=== PATIENT | male | born 1980 | race Caucasian/White ===

== ENCOUNTER 2020-11-29 15:57 | Emergency (ER) | payer OTHER, SELFPAY ==
--- NOTE | ~2020-11-29 | US_ITS ---
EXAMINATION: US ABDOMEN LIMITED CLINICAL INFORMATION: Right upper quadrant pain. COMPARISON: 06/13/2013 TECHNIQUE: Real-time imaging of the right upper quadrant abdominal viscera. FINDINGS: PANCREAS: Head of the pancreas obscured by bowel gas. The visualized pancreas is normal. LIVER: Liver is normal in size and contour. There is diffuse increased liver parenchymal echogenicity, consistent with hepatic steatosis. No focal hepatic lesion. There is no intrahepatic biliary duct dilatation seen. GALLBLADDER: Normal. The gallbladder is physiologically distended without evidence of stones, sludge, polyps, wall thickening or pericholecystic fluid. COMMON BILE DUCT: Normal in caliber measuring 0.2 cm in diameter. RIGHT KIDNEY: Normal. No hydronephrosis. No renal calculi or focal parenchymal lesions. The kidney measures 10.5 cm in maximum dimension. FREE FLUID: None. US/US abdomen limited IMPRESSION: Normal gallbladder. No biliary ductal dilatation. Sonographic appearance consistent with diffuse hepatic steatosis.
--- NOTE | ~2020-11-29 | XR_ITS ---
EXAMINATION: XR CHEST CLINICAL INFORMATION: Right upper quadrant pain COMPARISON: 03/09/2019 TECHNIQUE: 2 views of the chest were obtained. FINDINGS: Low lung volumes. Left base atelectasis or scar again seen.. No focal consolidation or mass. Normal pulmonary vascularity. No pleural effusion or pneumothorax. Normal heart size. Regional skeleton intact. XR/XR chest 2V IMPRESSION: No acute pulmonary disease.
[2020-11-29 16:00] VITALS: BP 132/76; PULSE 85; RESP 18; TEMP 36.6; O2SAT 97; BMI 29.3
[2020-11-29 18:21] VITALS: BP 140/86; PULSE 94; RESP 16; TEMP 36.8; O2SAT 98
[2020-11-29 18:27] LABS: MANUAL DIFF FLAG NO
[2020-11-29 18:39] LABS: Basophils Absolute Auto 0.1 X10*3/uL (0.0-0.2); Basophils Percent Auto 0.7 % (0-2); Eosinophils Absolute Auto 0.1 X10*3/uL (0.0-0.4); Eosinophils Percent Auto 1.2 % (0-4); Hemoglobin 16.8 g/dl (14.0-18.0); Imm Gran Abs Auto 0.02 X10*3/uL (0.00-0.03); Imm Gran Pct Auto 0.2 % (0.0-0.4); Lymphocytes Absolute Auto 2.7 X10*3/uL (1.2-4.9); Lymphocytes Percent Auto 26.3 % (20-40); Mean Corpuscular HGB Conc 34.3 g/dl (31.0-36.0); Mean Corpuscular Hemoglobin 28.8 pg (27.0-33.0); Mean Platelet Volume 11.6 fL (9.4-12.4); Monocytes Absolute Auto 0.9 X10*3/uL (0.1-1.2); Neutrophils Absolute Auto 6.4 X10*3/uL (2.0-8.3); Neutrophils Percent Auto 62.6 % (45-73); Platelet Count 237 X10*3/uL (160-400); Red Blood Count 5.83 X10*6/uL (4.60-5.80); Red Cell Distribution Width 12.4 % (11.0-16.0); White Blood Count 10.2 X10*3/uL (4.8-10.8)
[2020-11-29 18:46] LABS: Alanine Aminotransferase 26 U/L (0-40); Albumin Level 4.7 g/dL (3.5-5.0); Alkaline Phosphatase 47 U/L (39-117); Anion Gap 15 (12-20); Aspartate Amino Transferase 20 U/L (5-37); Bilirubin Direct 0.3 mg/dL (0.0-0.5); Blood Urea Nitrogen 19 mg/dL (9-16); Calcium 9.6 mg/dL (8.4-10.2); Carbon Dioxide 26 mmol/L (22-29); Chloride 103 mmol/L (96-108); Estimated Glomerular Filt Rate > 60; Glucose Random 89 mg/dL (60-115); Lipase 58 U/L (8-78); Potassium 3.1 mmol/L (3.3-5.1); Sodium 141 mmol/L (135-145); Total Protein 7.7 g/dL (6.5-8.0)
--- NOTE | 2020-11-29 19:46 | PC.NURSE ---
patient ambulated back to the bed with a steady gait. Patient in the bathroom getting undressed at this time.
--- NOTE | 2020-11-29 20:46 | ED.ABDPAIN ---
HPI - Abdominal Pain General Chief Complaint: Abdominal Pain Stated Complaint: Abdominal pain Source: patient Mode of arrival: ambulatory Limitations: no limitations History of Present Illness HPI narrative: 40-year-old male with past medical history of gastritis presents with 1 day of right upper quadrant abdominal pain. Patient states the pain gets worse after eating pork chops verses soup. He does not report any fevers or chills, nausea or vomiting, chest pain or pressure, palpitations, shortness of breath, abdominal distention, dysuria, hematuria, melena, hematochezia, diarrhea, constipation, or edema. MD elicited complaint: abdominal pain Pertinent past history: gastritis Onset (ago): day(s) (1) Pain Consistency: constant Location: RUQ and R flank Severity: moderate Pain scale (0-10): 5 Quality: aching Radiation: R flank Exacerbating factors: eating Relieving factors: rest Associated symptoms: denies other symptoms Related Data Previous Rx's Medication Instructions Recorded ibuprofen 600 mg PO Q6H PRN #60 tab 11/29/20 Allergies Allergy/AdvReac Type Severity Reaction Status Date / Time No Known Allergies Allergy Verified 11/29/20 15:59 Review of Systems Review of Systems Constitutional: No Weight loss, No Fever, No Chills, No Night Sweats, No Fatigue, No Malaise ENT/Mouth: No Hearing loss, No Ear Pain, No Nasal Congestion, No Sinus Pain, No Hoarseness, No sore throat, No Rhinorrhea, No Swallowing Difficulty Eyes: No Eye Pain, No Swelling, No Redness, No Foreign Body, No Discharge, No Vision Changes Cardiovascular: No Chest Pain, No SOB, No Dyspnea on Exertion, No Orthopnea, No Edema, No Palpitations Respiratory: No Cough, No Sputum, No Wheezing, No Smoke Exposure, No Dyspnea Gastrointestinal: Positive right upper quadrant pain, no Nausea, no Vomiting, no Diarrhea, no abdominal Pain, No Hematochezia, No Melena Genitourinary: no irregular bleeding, No Dysuria, No Urinary Frequency, No Hematuria, No Urinary Incontinence, No Urgency, No Flank Pain, No Urinary Flow Changes, No Hesitancy Musculoskeletal: No joint pain, No Myalgias, No Joint Swelling Skin: No Skin Lesions, No rash Neuro: No Weakness, No Numbness, No Paresthesias, No Loss of Consciousness, No Dizziness, No Headache Psych: No Anxiety/Panic, No Depression, No SI/HI/AH/VH, No Social Issues Heme/Lymph: No Bruising, No Bleeding,No Lymphadenopathy Endocrine: No Polyuria, No Polydipsia, No Temperature Intolerance Yes all other systems are reviewed and are negative Physical Exam Vital Signs: Vital Signs: Last Vital Signs Temp 98.7 F 11/29/20 21:42 Pulse 83 11/29/20 21:42 Resp 16 11/29/20 21:42 BP 127/82 11/29/20 21:42 Pulse Ox 98 11/29/20 21:42 Body Mass Index 29.3 Appearance: Alert. Oriented X3. No acute distress. Eyes: Pupils equal, round and reactive to light. ENT: Pharynx normal. Neck: Normal inspection. Neck supple. CVS: Normal heart rate and rhythm. Pulses normal. Respiratory: No respiratory distress. Breath sounds normal. Abdomen: Soft and right upper quadrant tenderness, positive Newell's, positive CVA tenderness, no distention, rigidity, or rebound. Skin: Skin warm and dry. Normal skin color. Normal skin turgor. Extremities: No lower extremity edema. Moves all extremities against resistance. Neuro: No motor deficit. No sensory deficit. Cranial nerves 2-12 intact. No focal neural deficits. Course Course Course Narrative: 40-year-old male presents with 1 day of right upper quadrant abdominal pain radiating to his right flank. CBC and Chem 7 were drawn while patient was waiting in the waiting room, labs are unremarkable. Physical exam is positive for Newell's, will order abdominal ultrasound. Will give some Toradol and some saline. Urinalysis negative, chest x-ray negative, abdominal ultrasound shows a distended gallbladder and fatty liver disease. Discussion with patient regarding plan to follow-up primary care physician, persists over next couple of weeks that patient could be referred to surgery, and if the patient develops fevers, chills, nausea, vomiting or any symptoms concerning for infection that he should return to emergency department as this may progress to a cholecystitis. Patient and family verbalized understanding of and agrees to plan of care discharge home. land surveyor assistant utilized for all correspondence, Google translate utilized for discharge instructions. MDM - Abdominal Pain MDM Narrative Medical decision making narrative: Cholecystitis, gallstone Differential Diagnosis Differential diagnosis: Likely abdominal pain, acute appendicitis, calculus of kidney, constipation and pancreatitis Medical Records Attestation: I reviewed the patient's medical records. Lab Data Attestation: I reviewed the patient's lab results. Result diagrams: 11/29/20 18:20 11/29/20 18:20 Labs: Lab Results 11/29/20 11/29/20 Range/Units 18:20 18:20 WBC 10.2 (4.8-10.8) X10*3/uL RBC 5.83 H (4.60-5.80) X10*6/uL Hgb 16.8 (14.0-18.0) g/dl Hct 49.0 (42-52) % MCV 84.0 (80-98) fL MCH 28.8 (27.0-33.0) pg MCHC 34.3 (31.0-36.0) g/dl RDW 12.4 (11.0-16.0) % Plt Count 237 (160-400) X10*3/uL MPV 11.6 (9.4-12.4) fL Immature Gran % (Auto) 0.2 (0.0-0.4) % Neut % (Auto) 62.6 (45-73) % Lymph % (Auto) 26.3 (20-40) % Taylor % (Auto) 9.0 (2-11) % Eos % (Auto) 1.2 (0-4) % Baso % (Auto) 0.7 (0-2) % Lymph # (Auto) 2.7 (1.2-4.9) X10*3/uL Taylor # (Auto) 0.9 (0.1-1.2) X10*3/uL Eos # (Auto) 0.1 (0.0-0.4) X10*3/uL Baso # (Auto) 0.1 (0.0-0.2) X10*3/uL Abs Immat Gran (auto) 0.02 (0.00-0.03) X10*3/uL Absolute Neuts (auto) 6.4 (2.0-8.3) X10*3/uL Absolute Nucleated RBC 0.000 (0.0-0.012) X10*3/uL Nucleated RBC % (auto) 0.0 (0.0-0.2) /100WBC Sodium 141 (135-145) mmol/L Potassium 3.1 L (3.3-5.1) mmol/L Chloride 103 (96-108) mmol/L Carbon Dioxide 26 (22-29) mmol/L Anion Gap 15 (12-20) BUN 19 H (9-16) mg/dL Creatinine 1.01 (0.5-1.4) mg/dL Estim Creat Clear Calc 99.0 Estimated GFR > 60 Random Glucose 89 (60-115) mg/dL Calcium 9.6 (8.4-10.2) mg/dL Total Bilirubin 1.0 (0.0-1.0) mg/dL Direct Bilirubin 0.3 (0.0-0.5) mg/dL AST 20 (5-37) U/L ALT 26 (0-40) U/L Alkaline Phosphatase 47 (39-117) U/L Total Protein 7.7 (6.5-8.0) g/dL Albumin 4.7 (3.5-5.0) g/dL Lipase 58 (8-78) U/L Imaging Data Chest x-ray: Attestation: I personally reviewed and interpreted this imaging study as follows: Radiologist's impression: EXAMINATION: XR CHEST CLINICAL INFORMATION: Right upper quadrant pain COMPARISON: 03/09/2019 TECHNIQUE: 2 views of the chest were obtained. FINDINGS: Low lung volumes. Left base atelectasis or scar again seen.. No focal consolidation or mass. Normal pulmonary vascularity. No pleural effusion or pneumothorax. Normal heart size. Regional skeleton intact. XR/XR chest 2V IMPRESSION: No acute pulmonary disease. Abdominal ultrasound: Attestation: I personally reviewed and interpreted this imaging study as follows: Radiologist's impression: EXAMINATION: US ABDOMEN LIMITED CLINICAL INFORMATION: Right upper quadrant pain. COMPARISON: 06/13/2013 TECHNIQUE: Real-time imaging of the right upper quadrant abdominal viscera. FINDINGS: PANCREAS: Head of the pancreas obscured by bowel gas. The visualized pancreas is normal. LIVER: Liver is normal in size and contour. There is diffuse increased liver parenchymal echogenicity, consistent with hepatic steatosis. No focal hepatic lesion. There is no intrahepatic biliary duct dilatation seen. GALLBLADDER: Normal. The gallbladder is physiologically distended without evidence of stones, sludge, polyps, wall thickening or pericholecystic fluid. COMMON BILE DUCT: Normal in caliber measuring 0.2 cm in diameter. RIGHT KIDNEY: Normal. No hydronephrosis. No renal calculi or focal parenchymal lesions. The kidney measures 10.5 cm in maximum dimension. FREE FLUID: None. US/US abdomen limited IMPRESSION: Normal gallbladder. No biliary ductal dilatation. Sonographic appearance consistent with diffuse hepatic steatosis. Discharge Plan Discharge Clinical Impression: Abdominal pain, acute, right upper quadrant Patient Disposition: Home, Self-Care Instructions: Biliary Colic (ED), Non-Alcoholic Fatty Liver Disease (ED) Additional Instructions: Te evaluaron para el dolor del cuadrante superior derecho. La ecograf?a del abdomen muestra quyen ves?cula biliar distendida sin infecci?n, c?lculos biliares o lodos de agallas. Si el dolor persiste en las pr?ximas semanas, es posible que consideres hacer un seguimiento con el cirujano. Si presenta fiebres, escalofr?os, n?useas, v?mitos y dolor abdominal, regrese al servicio de urgencias inmediatamente, ya que esto puede indicar que la ves?cula biliar distendida progres? en quyen infecci?n de la ves?cula biliar. El ultrasonido tambi?n indica que tienes enfermedad del h?gado graso. Por favor, jaison un seguimiento con carballo m?dico de atenci?n primaria O gastroenterolog?a . La radiograf?a de t?rax es negativa para los hallazgos agudos que requieren quyen intervenci?n emergente. Los valores de carballo laboratorio son negativos para la infecci?n o el hallazgo carolee. Le recet? Motrin 600 mg cada 6 horas seg?n sea necesario para el dolor Marta por elegir nadir departamento de emergencias para carballo evaluaci?n. Por favor, jaison un seguimiento con el m?dico de atenci?n primaria seg?n sea necesario. Volver al servicio de urgencias para cualquier s?ntoma nuevo, preocupante o que empeore You were evaluated for right upper quadrant pain. Ultrasound of the abdomen shows a distended gallbladder without infection, gallstone, or gall sludge. If pain persists over the next few weeks you may consider following up with the surgeon. If you develop fevers, chills, nausea, vomiting, and abdominal pain please return to the emergency department immediately as this may indicate that your distended gallbladder progressed into a gallbladder infection. Ultrasound also indicates that you have fatty liver disease. Please follow-up with your primary care physician or Gastroenterology. Your chest x-ray is negative for acute findings requiring emergent intervention. Your lab values are negative for infection or acute finding. I prescribed Motrin 600 mg every 6 hours as needed for pain Thank you for choosing this emergency department for evaluation. Please follow-up with primary care physician as needed. Return to the emergency department for any new, concerning, or worsening symptoms. Prescriptions: New ibuprofen 600 mg tablet 600 mg PO Q6H PRN (Reason: pain) Qty: 60 RF: 0 Referrals: Alvaro Allred MD [Physician] - 2 days (Fatty liver disease) Jorge Moreno MD [Physician] - 2 days (Distended gallbladder) [facility] Past Medical History Attestation statement: The following information was validated with the patient. Source: old records reviewed Medical History Gastritis Social History Social History Alcohol intake: never Smoking Status: Never smoker Use of substances other than those prescribed or required for medical reasons: No Advance Directives: No Advance Directives Information Provided: Yes
[2020-11-29 21:42] VITALS: BP 127/82; PULSE 83; RESP 16; TEMP 37.1; O2SAT 98
[2020-11-29] MEDS: ondansetron HCL 4 MG/2 ML VIAL IVPUSH (21:46)
[2020-11-29] MEDS: Ketorolac Tromethamine 30 MG/ML VIAL IVPUSH (21:46)
[2020-11-29] MEDS: 0.9 % Sodium Chloride 1,000 ML 999 ML IVCONT (21:46)
[2020-11-29 22:59] LABS: Glucose Urine UA NEG (NEG); Leukocyte Esterase Urine NEG (NEG); Nitrite Urine NEG (NEG); Urine Blood NEG (NEG); Urine Ketones NEG (NEG); Urine Protein NEG (NEG-TRACE)
[2020-11-29 23:00] LABS: Appearance Urine CLEAR; Color Urine YELLOW
== END 2020-11-29 23:16 | disposition home or self-care (01) ==
PROVIDERS: Nurse Practitioner Family; Emergency Provider Internal Medicine
DX: R10.11 Right upper quadrant pain (principal); Z79.899 Other long term (current) drug therapy
CPT/HCPCS: 36415; 71046; 76705; 80048; 80076; 81003; 83690; 85025; 96365; 96375; 99285; J1885; J2405

== ENCOUNTER 2021-01-06 14:55 | Emergency (ER) | payer OTHER, SELFPAY ==
[2021-01-06 16:42] VITALS: BP 150/86; PULSE 122; RESP 18; TEMP 39.2; O2SAT 95; BMI 29.1
--- NOTE | 2021-01-06 17:06 | ED.GENADULT ---
HPI - General Adult General Chief complaint: General Medical Stated complaint: cough chest discomfort Time Seen by Provider: 01/06/21 16:44 Source: patient and family Limitations: language barrier History of Present Illness HPI narrative: Patient states 24-36 hours of fever cough congestion. Unknown COVID-19 exposure. Patient was scheduled to get the COVID-19 vaccine but has not. Patient denies smoking history. Patient denies any trauma history no other complaints at this time. Symptoms mild to moderate. Patient has a slight sore throat and no other complaints at this time. No prior history of COVID-19 Related Data Previous Rx's Medication Instructions Recorded ibuprofen 600 mg PO Q6H PRN #60 tab 11/29/20 Allergies Allergy/AdvReac Type Severity Reaction Status Date / Time No Known Allergies Allergy Verified 01/06/21 16:42 Review of Systems Constitutional: Constitutional: Denies chills, Reports fever(s) and Reports headache(s) ENT: Reports headache(s), Reports nasal congestion and Reports sore throat Cardiovascular: Cardiovascular: Denies chest pain and Reports dyspnea Respiratory: Respiratory: Reports cough and Reports dyspnea Gastrointestinal: Gastrointestinal: Denies nausea and Denies vomiting Genitourinary: Genitourinary: Reports no additional male genitourinary complaints Musculoskeletal: Musculoskeletal: Reports no additional musculoskeletal complaints Neurologic: Reports headache(s) Hematologic/Lymphatic: Hematologic/Lymphatic: Denies easy bleeding and Denies easy bruising Allergic/Immunologic: Allergic/Immunologic: Denies urticaria PMFSH Past Medical History Attestation statement: The following information was validated with the patient. Medical History Gastritis HTN (hypertension) Social History Social History Alcohol intake: never Advance Directives: No Advance Directives Information Provided: No Physical Exam Vital Signs: Vital Signs: Last Vital Signs Temp 102.6 F H 01/06/21 16:42 Pulse 122 H 01/06/21 16:42 Resp 18 01/06/21 16:42 BP 150/86 H 01/06/21 16:42 Pulse Ox 95 01/06/21 16:42 Body Mass Index 29.1 vital signs have been reviewed as normal and appeared to be correct. Blood pressure normal. Heart rate normal. Respiration rate normal. Temperature normal. Oxygen saturation normal. Appearance: Alert. Oriented X3. No acute distress. Head: Normal external exam. Normocephalic. Atraumatic. No Hanson signs noted. No raccoon eyes noted Eyes: PERRLA. EOMI. Conjunctiva and sclera normal. Eyelids normal. ENT: Pharynx normal. Uvula midline. Moist mucous membranes. Neck: Soft full range of motion, no JVD CVS: Heart regular rate and rhythm no murmurs and rubs Respiratory: Breath sounds are clear to auscultation bilaterally. No accessory muscle use noted. Abdomen: Soft nontender no rebound or guarding positive bowel sounds Skin: Skin warm and dry. Normal skin color. No rashes. Extremities: No lower extremity edema. Extremities exhibit normal range of motion. Extremities nontender. Neuro: Oriented X 3. No motor deficit. No sensory deficit. Reflexes normal. Course Course Course Narrative: Differential diagnosis: Fever COVID-19 URI Acute pharyngitis Patient is febrile 375 mg whole p.o. at this time. Patient's room air sats 95% with activity. COVID-19 swab test pending 5:49 p.m. patient signed out to Mayela Escalante PA-C Discharge Plan Discharge Prescriptions: No Action ibuprofen 600 mg tablet 600 mg PO Q6H PRN (Reason: pain) Qty: 60 RF: 0
[2021-01-06] MEDS: Acetaminophen 325 MG TABLET PO ×3 (17:30)
[2021-01-06 18:00] LABS: COVID-19 Test Positive (Negative)
[2021-01-06 18:37] VITALS: BP 131/86; PULSE 115; RESP 17; TEMP 39; O2SAT 97
[2021-01-06] MEDS: Ibuprofen 400 MG TABLET PO (19:18)
[2021-01-06 20:03] VITALS: PULSE 108; RESP 17; TEMP 38.1; O2SAT 97
== END 2021-01-06 21:30 | disposition home or self-care (01) ==
PROVIDERS: Physician Assistant; Emergency Provider Internal Medicine
DX: U07.1 COVID-19 (principal); J02.9 Acute pharyngitis, unspecified; R50.9 Fever, unspecified; R05 Cough; Z79.899 Other long term (current) drug therapy
CPT/HCPCS: 36415; 87635; 99284

== ENCOUNTER 2021-01-12 15:17 | Emergency (ER) | payer OTHER, SELFPAY ==
--- NOTE | ~2021-01-12 | XR_ITS ---
EXAMINATION: XR CHEST CLINICAL INFORMATION: Chest tightness COMPARISON: 11/29/2020 TECHNIQUE: Frontal view of the chest was obtained. FINDINGS: Lungs are hypoinflated. Heart size normal. Atelectasis present at the left base slightly worsened previously noted. No areas of linear atelectasis at the right lung base and mid lung XR/XR chest 1V IMPRESSION: Hypoinflated lungs with scattered areas of atelectasis.
[2021-01-12 17:01] VITALS: BP 114/84; PULSE 117; RESP 18; TEMP 38.4; O2SAT 93
[2021-01-12 17:16] VITALS: TEMP 39.1
[2021-01-12 17:25] VITALS: PULSE 100; RESP 18; TEMP 39.1; O2SAT 95; BMI 29.1
--- NOTE | 2021-01-12 17:27 | ECG_ITS ---
Test Reason : SHORTNESS OF BREATH Blood Pressure : / mmHG Vent. Rate : 103 BPM Atrial Rate : 103 BPM P-R Int : 162 ms QRS Dur : 088 ms QT Int : 338 ms P-R-T Axes : 031 000 006 degrees QTc Int : 442 ms Sinus tachycardia Otherwise normal ECG When compared to the previous EKG of No significant changes seen Referred By: Mirela Noguera Electronically Signed By:JESSICA ALFARO MD
--- NOTE | 2021-01-12 17:32 | ED.GENADULT ---
HPI - General Adult General Chief complaint: Upper Respiratory Symptoms Stated complaint: covid + Time Seen by Provider: 01/12/21 17:21 Source: patient Mode of arrival: ambulatory Limitations: no limitations History of Present Illness HPI narrative: Patient comes to emergency room complaining of testing positive for COVID 6 days ago, patient states that he has been having fever, chills, nausea, generalized malaise, shortness of breath. Patient has not taking any medications at home. Related Data Previous Rx's Medication Instructions Recorded ibuprofen 600 mg PO Q6H PRN #60 tab 11/29/20 acetaminophen 500 mg PO Q6H PRN #14 cap 01/12/21 Allergies Allergy/AdvReac Type Severity Reaction Status Date / Time No Known Allergies Allergy Verified 01/06/21 16:42 Review of Systems Review of Systems: Constitutional : No Weight loss, complaining of fever, chills, fatigue and generalized malaise ENT/Mouth : No Hearing loss, No Ear Pain, No Nasal Congestion, No Sinus Pain, No Hoarseness, No sore throat, No Rhinorrhea, No Swallowing Difficulty Eyes: No Eye Pain, No Swelling, No Redness, No Foreign Body, No Discharge, No Vision Changes Cardiovascular : No Chest Pain, No SOB, No Dyspnea on Exertion, No Orthopnea, No Edema, No Palpitations Respiratory : Complaining of dry cough, No Sputum, No Wheezing, No Smoke Exposure, complaining of dyspnea Gastrointestinal : Complaining of nausea, No Vomiting, No Diarrhea, No Constipation, No abdominal Pain, No Hematochezia, No Melena Genitourinary : no irregular bleeding, No Dysuria, No Urinary Frequency, No Hematuria, No Urinary Incontinence, No Urgency, No Flank Pain, No Urinary Flow Changes, No Hesitancy Musculoskeletal : No joint pain, complaining of diffuse Myalgias, No Joint Swelling Skin : No Skin Lesions, No rash Neuro : No Weakness, No Numbness, No Paresthesias, No Loss of Consciousness, No Dizziness, No Headache Psych : No Anxiety/Panic, No Depression, No SI/HI/AH/VH, No Social Issues, Heme/Lymph: No Bruising, No Bleeding,No Lymphadenopathy Endocrine : No Polyuria, No Polydipsia, No Temperature Intolerance PMFSH Past Medical History Medical History Gastritis HTN (hypertension) Social History Social History Alcohol intake: never Advance Directives: No Advance Directives Information Provided: Yes Physical Exam Vital Signs: Vital Signs: Last Vital Signs Temp 102.4 F H 01/12/21 17:25 Pulse 100 01/12/21 17:25 Resp 18 01/12/21 17:25 BP 114/84 01/12/21 17:01 Pulse Ox 95 01/12/21 17:25 Body Mass Index 29.1 Appearance: Alert. Oriented X3. No acute distress. Eyes: Pupils equal, round and reactive to light. ENT: Pharynx normal. Neck: Normal inspection. Neck supple. No lymph nodes noted. No crepitus CVS: Tachycardic, Pulses normal. Normal S1 and S2 Respiratory: No respiratory distress. Breath sounds decreased bilaterally. No Wheezing. No rales Abdomen: Soft and nontender. No rigidity. No distention. good BS x4 Skin: Skin warm and dry. Normal skin color. Normal skin turgor. Extremities: No lower extremity edema. No lower extremity edema. No Lacerations. No Rash Neuro: Oriented X 3. No motor deficit. No sensory deficit. Moving all extermities. No slurred speech. Course Course Course Narrative: I discussed the labs and imaging with the patient, which are consistent with COVID-19. [facility], his oxygen saturation remained at 91-94% while walking. Patient did not drop. Initially, there was an ambulation trial which went down to 88, however the patient did not have good waveform and the probe was falling of his finger. Patient states his also has COVID-19, at home. Discussed with the patient if he has any new symptoms, to return to the emergency room. Medical Decision Making Lab Data Result diagrams: 01/12/21 17:59 01/12/21 17:59 Labs: Lab Results 01/12/21 01/12/21 01/12/21 Range/Units 17:59 17:59 17:59 WBC 4.0 L (4.8-10.8) X10*3/uL RBC 5.81 H (4.60-5.80) X10*6/uL Hgb 16.5 (14.0-18.0) g/dl Hct 48.4 (42-52) % MCV 83.3 (80-98) fL MCH 28.4 (27.0-33.0) pg MCHC 34.1 (31.0-36.0) g/dl RDW 12.6 (11.0-16.0) % Plt Count 151 L D (160-400) X10*3/uL MPV 11.2 (9.4-12.4) fL Immature Gran % (Auto) 0.0 (0.0-0.4) % Neut % (Auto) 68.4 (45-73) % Lymph % (Auto) 21.3 (20-40) % Smyth % (Auto) 10.1 (2-11) % Eos % (Auto) 0.0 (0-4) % Baso % (Auto) 0.2 (0-2) % Lymph # (Auto) 0.9 L (1.2-4.9) X10*3/uL Smyth # (Auto) 0.4 (0.1-1.2) X10*3/uL Eos # (Auto) 0.0 (0.0-0.4) X10*3/uL Baso # (Auto) 0.0 (0.0-0.2) X10*3/uL Abs Immat Gran (auto) 0.00 (0.00-0.03) X10*3/uL Absolute Neuts (auto) 2.8 (2.0-8.3) X10*3/uL Absolute Nucleated RBC 0.000 (0.0-0.012) X10*3/uL Nucleated RBC % (auto) 0.0 (0.0-0.2) /100WBC D-Dimer < 200 NG/ML Sodium 138 (135-145) mmol/L Potassium 3.2 L (3.3-5.1) mmol/L Chloride 96 (96-108) mmol/L Carbon Dioxide 32 H (22-29) mmol/L Anion Gap 13 (12-20) BUN 13 (9-16) mg/dL Creatinine 1.27 (0.5-1.4) mg/dL Estim Creat Clear Calc 81.0 Estimated GFR > 60 Random Glucose 95 (60-115) mg/dL Lactic Acid (0.5-2.0) mmol/L Calcium 9.0 D (8.4-10.2) mg/dL Total Bilirubin 0.8 (0.0-1.0) mg/dL Direct Bilirubin 0.4 (0.0-0.5) mg/dL AST 134 H (5-37) U/L ALT 65 H (0-40) U/L Alkaline Phosphatase 34 L D (39-117) U/L Total Protein 7.4 (6.5-8.0) g/dL Albumin 4.4 (3.5-5.0) g/dL 01/12/21 Range/Units 17:59 WBC (4.8-10.8) X10*3/uL RBC (4.60-5.80) X10*6/uL Hgb (14.0-18.0) g/dl Hct (42-52) % MCV (80-98) fL MCH (27.0-33.0) pg MCHC (31.0-36.0) g/dl RDW (11.0-16.0) % Plt Count (160-400) X10*3/uL MPV (9.4-12.4) fL Immature Gran % (Auto) (0.0-0.4) % Neut % (Auto) (45-73) % Lymph % (Auto) (20-40) % Smyth % (Auto) (2-11) % Eos % (Auto) (0-4) % Baso % (Auto) (0-2) % Lymph # (Auto) (1.2-4.9) X10*3/uL Smyth # (Auto) (0.1-1.2) X10*3/uL Eos # (Auto) (0.0-0.4) X10*3/uL Baso # (Auto) (0.0-0.2) X10*3/uL Abs Immat Gran (auto) (0.00-0.03) X10*3/uL Absolute Neuts (auto) (2.0-8.3) X10*3/uL Absolute Nucleated RBC (0.0-0.012) X10*3/uL Nucleated RBC % (auto) (0.0-0.2) /100WBC D-Dimer NG/ML Sodium (135-145) mmol/L Potassium (3.3-5.1) mmol/L Chloride (96-108) mmol/L Carbon Dioxide (22-29) mmol/L Anion Gap (12-20) BUN (9-16) mg/dL Creatinine (0.5-1.4) mg/dL Estim Creat Clear Calc Estimated GFR Random Glucose (60-115) mg/dL Lactic Acid 1.2 (0.5-2.0) mmol/L Calcium (8.4-10.2) mg/dL Total Bilirubin (0.0-1.0) mg/dL Direct Bilirubin (0.0-0.5) mg/dL AST (5-37) U/L ALT (0-40) U/L Alkaline Phosphatase (39-117) U/L Total Protein (6.5-8.0) g/dL Albumin (3.5-5.0) g/dL Imaging Data Chest x-ray: Radiologist's impression: FINDINGS: Lungs are hypoinflated. Heart size normal. Atelectasis present at the left base slightly worsened previously noted. No areas of linear atelectasis at the right lung base and mid lung XR/XR chest 1V IMPRESSION: Hypoinflated lungs with scattered areas of atelectasis. Discharge Plan Discharge Clinical Impression: COVID-19 Fever Qualifiers: Fever type: unspecified Qualified Code(s): R50.9 - Fever, unspecified Patient Disposition: Home, Self-Care Instructions: COVID-19 (Coronavirus Disease 2019) (ED) Additional Instructions: Please follow-up with your primary care physician tomorrow. If you have any worsening or new symptoms, please return to the emergency room or call 911 Prescriptions: New acetaminophen 500 mg capsule 500 mg PO Q6H PRN (Reason: fever or pain) Qty: 14 RF: 0 No Action ibuprofen 600 mg tablet 600 mg PO Q6H PRN (Reason: pain) Qty: 60 RF: 0
[2021-01-12] MEDS: Acetaminophen 325 MG TABLET 650 MG PO (17:35)
[2021-01-12 18:07] LABS: MANUAL DIFF FLAG NO
[2021-01-12 18:09] LABS: Basophils Percent Auto 0.2 % (0-2); Hematocrit 48.4 % (42-52); Hemoglobin 16.5 g/dl (14.0-18.0); Lymphocytes Absolute Auto 0.9 X10*3/uL (1.2-4.9); Lymphocytes Percent Auto 21.3 % (20-40); Mean Corpuscular HGB Conc 34.1 g/dl (31.0-36.0); Mean Corpuscular Hemoglobin 28.4 pg (27.0-33.0); Mean Corpuscular Volume 83.3 fL (80-98); Mean Platelet Volume 11.2 fL (9.4-12.4); Monocytes Absolute Auto 0.4 X10*3/uL (0.1-1.2); Monocytes Percent Auto 10.1 % (2-11); Neutrophils Absolute Auto 2.8 X10*3/uL (2.0-8.3); Neutrophils Percent Auto 68.4 % (45-73); Platelet Count 151 X10*3/uL (160-400); Red Blood Count 5.81 X10*6/uL (4.60-5.80); Red Cell Distribution Width 12.6 % (11.0-16.0)
[2021-01-12] MEDS: ondansetron HCL 4 MG/2 ML VIAL IVPUSH (18:12)
[2021-01-12] MEDS: 0.9 % Sodium Chloride 1,000 ML 999 ML IVCONT (18:12)
[2021-01-12 18:18] LABS: D Dimer < 200 NG/ML
[2021-01-12 18:33] LABS: Lactic Acid 1.2 mmol/L (0.5-2.0)
[2021-01-12 18:38] LABS: Alanine Aminotransferase 65 U/L (0-40); Albumin Level 4.4 g/dL (3.5-5.0); Alkaline Phosphatase 34 U/L (39-117); Anion Gap 13 (12-20); Aspartate Amino Transferase 134 U/L (5-37); Bilirubin Direct 0.4 mg/dL (0.0-0.5); Bilirubin Total 0.8 mg/dL (0.0-1.0); Blood Urea Nitrogen 13 mg/dL (9-16); Carbon Dioxide 32 mmol/L (22-29); Chloride 96 mmol/L (96-108); Estimated Glomerular Filt Rate > 60; Glucose Random 95 mg/dL (60-115); Potassium 3.2 mmol/L (3.3-5.1); Sodium 138 mmol/L (135-145); Total Protein 7.4 g/dL (6.5-8.0)
[2021-01-12] MEDS: Potassium Chloride Packet 20 MEQ PACKET 40 MEQ PO (19:40)
[2021-01-12] MEDS: Prochlorperazine Edisylate 10 MG/2 ML VIAL IVPUSH (19:41)
[2021-01-12 20:00] VITALS: BP 119/76; PULSE 102; RESP 15; O2SAT 92
== END 2021-01-12 21:26 | disposition home or self-care (01) ==
PROVIDERS: Emergency Provider Emergency Medicine
DX: U07.1 COVID-19 (principal); R50.9 Fever, unspecified; I10 Essential (primary) hypertension
CPT/HCPCS: 36415; 71045; 80048; 80076; 83605; 85025; 85379; 93005; 96361; 96374; 96375; 99284; J2405

== ENCOUNTER 2021-11-04 20:49 | Emergency (ER) | payer OTHER, SELFPAY ==
--- NOTE | 2021-11-04 | ECG_ITS ---
Test Reason : CHEST PAIN Blood Pressure : / mmHG Vent. Rate : 072 BPM Atrial Rate : 072 BPM P-R Int : 184 ms QRS Dur : 092 ms QT Int : 378 ms P-R-T Axes : 040 009 022 degrees QTc Int : 413 ms Normal sinus rhythm Normal ECG When compared with ECG of 12-JAN-2021 18:01, No significant change was found Referred By: Generic ED Physician Electronically Signed By:GABRIEL CARLOS
--- NOTE | ~2021-11-04 | XR_ITS ---
EXAMINATION: XR CHEST CLINICAL INFORMATION: Chest pain COMPARISON: 01/12/2021 TECHNIQUE: 2 views of the chest were obtained. FINDINGS: Lung volumes are improved. Linear atelectasis vs. scar at the left lung base. No focal consolidation or mass. No pleural effusion or pneumothorax. Normal heart size. Regional skeleton intact. XR/XR chest 2V IMPRESSION: No acute pulmonary disease.
[2021-11-04 21:26] VITALS: BP 142/90; PULSE 78; RESP 14; TEMP 37.1; O2SAT 96; BMI 28.1
[2021-11-04 21:52] LABS: MANUAL DIFF FLAG NO
[2021-11-04 21:54] LABS: Basophils Absolute Auto 0.1 X10*3/uL (0.0-0.2); Basophils Percent Auto 1.1 % (0-2); Eosinophils Absolute Auto 0.2 X10*3/uL (0.0-0.4); Eosinophils Percent Auto 2.7 % (0-4); Hematocrit 45.8 % (42.0-52.0); Hemoglobin 15.5 g/dl (14.0-18.0); Imm Gran Abs Auto 0.01 X10*3/uL (0.00-0.03); Imm Gran Pct Auto 0.2 % (0.0-0.4); Lymphocytes Absolute Auto 1.9 X10*3/uL (1.2-4.9); Mean Corpuscular HGB Conc 33.8 g/dl (31.0-36.0); Mean Corpuscular Hemoglobin 28.7 pg (27.0-33.0); Mean Corpuscular Volume 84.7 fL (80.0-98.0); Mean Platelet Volume 11.2 fL (9.4-12.4); Monocytes Absolute Auto 0.5 X10*3/uL (0.1-1.2); Monocytes Percent Auto 8.3 % (2-11); Neutrophils Absolute Auto 3.6 x10*3/uL (2.0-8.3); Neutrophils Percent Auto 56.7 % (45-73); Platelet Count 215 X10*3/uL (160-400); Red Blood Count 5.41 X10*6/uL (4.60-5.80); Red Cell Distribution Width 12.6 % (11.0-16.0); White Blood Count 6.3 X10*3/uL (4.8-10.8)
[2021-11-04 22:08] LABS: Alanine Aminotransferase 32 U/L (0-40); Albumin Level 4.5 g/dL (3.5-5.0); Alkaline Phosphatase 58 U/L (39-117); Anion Gap 11 (12-20); Aspartate Amino Transferase 24 U/L (5-37); Bilirubin Direct 0.2 mg/dL (0.0-0.5); Bilirubin Total 0.4 mg/dL (0.0-1.0); Blood Urea Nitrogen 12 mg/dL (9-16); Calcium 9.3 mg/dL (8.4-10.2); Carbon Dioxide 26 mmol/L (22-29); Chloride 107 mmol/L (96-108); Creatinine Clr Calc Pharmacy 89.6; Estimated Glomerular Filt Rate > 60; Glucose Random 101 mg/dL (60-115); Lipase 75 U/L (8-78); Potassium 4.1 mmol/L (3.3-5.1); Sodium 140 mmol/L (135-145); Total Protein 7.4 g/dL (6.5-8.0)
[2021-11-04 22:15] LABS: Troponin-I High Sensitivity 3.5 ng/L (<3.5-35.0)
[2021-11-05 01:58] VITALS: BP 131/91; PULSE 69; RESP 16; O2SAT 98
--- NOTE | 2021-11-05 02:21 | ED.CHESTPAIN ---
HPI - Chest Pain General Chief Complaint: Chest Pain Stated Complaint: Chest pain Time Seen by Provider: 11/05/21 00:37 Source: patient and family Mode of arrival: ambulatory History of Present Illness HPI narrative: 41-year-old male without significant past medical history presents with having started a new exercise program over the past week and then states he worked out much harder over the past 3 days and began developing chest wall discomfort that was primarily located at the lower right chest wall but denies any associated headache/dizziness/nausea/diaphoresis but states that overall there was an increasing tightness across both sides. On deep inspiration patient states that he feels much more but denies any association with movement. Related Data Previous Rx's Medication Instructions Recorded ibuprofen 600 mg tablet 600 mg PO Q6H PRN #60 tab 11/29/20 acetaminophen 500 mg capsule 500 mg PO Q6H PRN #14 cap 01/12/21 Allergies Allergy/AdvReac Type Severity Reaction Status Date / Time No Known Allergies Allergy Verified 01/06/21 16:42 Review of Systems Review of Systems: Pertinent positives and negatives as stated in HPI 10 point review of systems is otherwise negative. PMFSH Past Medical History Source: nursing notes reviewed Medical History Gastritis HTN (hypertension) Social History Social History Alcohol intake: never Advance Directives: No Physical Exam Vital Signs: Vital Signs: Last Vital Signs Temp 98.8 F 11/04/21 21:26 Pulse 69 11/05/21 01:58 Resp 16 11/05/21 01:58 BP 131/91 H 11/05/21 01:58 Pulse Ox 98 11/05/21 01:58 BMI result Body Mass Index 28.1 VITAL SIGNS: Reviewed. GENERAL: Well developed, well nourished, in no acute distress. HEAD: Normocephalic/atraumatic EYES: PERRLA, EOMI EARS: Ext canals without abnormality OROPHARYNX: no oral lesions noted, posterior pharynx clear LUNGS: Normal breath sounds. No adventitious sounds or accessory muscle use. SpO2<98> CARDIOVASCULAR: Regular rate and rhythm without noted murmurs ABDOMEN: Soft, non-tender, non-distended with bowel sounds. MUSCULOSKELETAL: No tenderness, deformities, or effusions noted on gross inspection. EXTREMITIES: No cyanosis, clubbing or edema. SKIN: Inspection of the skin reveals no rashes NEUROLOGIC: Alert and oriented x 4. Strength and sensation to light touch were grossly intact x 4. Course Course Course Narrative: 41-year-old male with history and clinical presentation consistent with musculoskeletal/costochondritis but the possibility developing gallbladder symptoms may be present. On review of all investigations there are no acute findings to suggest cardiopulmonary etiology and patient is PERC negative. All results discussed with the patient at bedside and he is otherwise discharged home in stable condition. MDM - Chest Pain Lab Data Result diagrams: 11/04/21 21:48 11/04/21 21:48 Labs: Lab Results 11/04/21 11/04/21 11/04/21 Range/Units 21:48 21:48 21:48 WBC 6.3 (4.8-10.8) X10*3/uL RBC 5.41 (4.60-5.80) X10*6/uL Hgb 15.5 (14.0-18.0) g/dl Hct 45.8 (42.0-52.0) % MCV 84.7 (80.0-98.0) fL MCH 28.7 (27.0-33.0) pg MCHC 33.8 (31.0-36.0) g/dl RDW 12.6 (11.0-16.0) % Plt Count 215 (160-400) X10*3/uL MPV 11.2 (9.4-12.4) fL Immature Gran % (Auto) 0.2 (0.0-0.4) % Neut % (Auto) 56.7 (45-73) % Lymph % (Auto) 31.0 (20-40) % Bath % (Auto) 8.3 (2-11) % Eos % (Auto) 2.7 (0-4) % Baso % (Auto) 1.1 (0-2) % Lymph # (Auto) 1.9 (1.2-4.9) X10*3/uL Bath # (Auto) 0.5 (0.1-1.2) X10*3/uL Eos # (Auto) 0.2 (0.0-0.4) X10*3/uL Baso # (Auto) 0.1 (0.0-0.2) X10*3/uL Abs Immat Gran (auto) 0.01 (0.00-0.03) X10*3/uL Absolute Neuts (auto) 3.6 (2.0-8.3) x10*3/uL Absolute Nucleated RBC 0.000 (0.0-0.012) X10*3/uL Nucleated RBC % (auto) 0.0 (0.0-0.2) /100WBC Sodium 140 (135-145) mmol/L Potassium 4.1 D (3.3-5.1) mmol/L Chloride 107 (96-108) mmol/L Carbon Dioxide 26 (22-29) mmol/L Anion Gap 11 L (12-20) BUN 12 (9-16) mg/dL Creatinine 1.12 (0.5-1.4) mg/dL Estim Creat Clear Calc 89.6 Estimated GFR > 60 Random Glucose 101 (60-115) mg/dL Calcium 9.3 (8.4-10.2) mg/dL Total Bilirubin 0.4 (0.0-1.0) mg/dL Direct Bilirubin 0.2 (0.0-0.5) mg/dL AST 24 D (5-37) U/L ALT 32 (0-40) U/L Alkaline Phosphatase 58 D (39-117) U/L Troponin I High Sens 3.5 (<3.5-35.0) ng/L Total Protein 7.4 (6.5-8.0) g/dL Albumin 4.5 (3.5-5.0) g/dL Lipase 75 (8-78) U/L ECG Data ECG #1: Attestation: I personally reviewed and interpreted this ECG as follows: Prior ECG tracings: available for review Interpretation: NSR, HR-72, no STEMI, AK/QRS/QTC are within normal limits. Discharge Plan Discharge Clinical Impression: Atypical chest pain, Costalchondritis Patient Disposition: Home, Self-Care Instructions: Costochondritis (ED), Chest Wall Pain (ED) Additional Instructions: 1. Tylenol 1000 mg, por v?a oral, cada 6 horas seg?n sea necesario para controlar el dolor. No exceda los 4000 mg dentro de las 24 horas. 2. Ibuprofeno 400 mg, v?a oral con leche o comida, cada 6 horas jael para el control del dolor. 3. Si el dolor en la parte inferior derecha del pecho contin?a, le recomendar?a que jaison un seguimiento con carballo proveedor de atenci?n primaria para analizar la posibilidad de obtener quyen evaluaci?n por ultrasonido de carballo ves?cula biliar. Regrese a la asia de emergencias si los s?ntomas empeoran. Prescriptions: No Action ibuprofen 600 mg tablet 600 mg PO Q6H PRN (Reason: pain) Qty: 60 0RF acetaminophen 500 mg capsule 500 mg PO Q6H PRN (Reason: fever or pain) Qty: 14 0RF Print Language: Luxembourgish
== END 2021-11-05 02:58 | disposition home or self-care (01) ==
PROVIDERS: Emergency Provider Student in an Organized Health Care Education/Training Program
DX: R07.89 Other chest pain (principal); M94.0 Chondrocostal junction syndrome [Tietze]; I10 Essential (primary) hypertension
CPT/HCPCS: 36415; 71046; 80053; 82248; 83690; 84484; 85025; 93005; 99283; 99284

== ENCOUNTER 2023-02-17 16:09 | Emergency (ER) | payer OTHER, SELFPAY ==
--- NOTE | ~2023-02-17 | XR_ITS ---
EXAMINATION: RIGHT ANKLE, RIGHT FOOT CLINICAL INFORMATION: 3 with pain COMPARISON: None available. TECHNIQUE: 2 views right ankle, 3 views right foot FINDINGS: The ankle mortise is stable. No ankle fracture is seen. No joint effusion is detected. Evaluation of the foot is unremarkable without evidence of fracture or dislocation. XR/XR ankle RT min 3V IMPRESSION: No evidence of an acute osseous injury.
--- NOTE | ~2023-02-17 | XR_ITS ---
EXAMINATION: RIGHT ANKLE, RIGHT FOOT CLINICAL INFORMATION: 3 with pain COMPARISON: None available. TECHNIQUE: 2 views right ankle, 3 views right foot FINDINGS: The ankle mortise is stable. No ankle fracture is seen. No joint effusion is detected. Evaluation of the foot is unremarkable without evidence of fracture or dislocation. XR/XR foot RT min 3V IMPRESSION: No evidence of an acute osseous injury.
[2023-02-17 16:22] VITALS: BP 145/93; PULSE 99; RESP 18; TEMP 36.6; O2SAT 96; BMI 33.1
--- NOTE | 2023-02-17 16:23 | ED.LOWEXIN ---
HPI - Extremity Injury (Lower) General Chief Complaint: Extremity Injury, Lower Stated Complaint: swollen ankle Time Seen by Provider: 02/17/23 17:20 Source: patient Mode of arrival: ambulatory Limitations: language barrier ( Gabonese-speaking medical laboratory specialist utilized) History of Present Illness HPI Narrative: patient is a 42-year-old male who presents emergency department for evaluation of traumatic right ankle pain. Onset of pain was 3 days ago after he Was driving he reports that his foot slipped between the 2 pedals. He had initial mild pain that has become progressively worse as he has been weight-bearing and walking. Pain is felt primarily to the midfoot. Has faint bruising at the distal 2nd through 4th metatarsals. reports mild diffuse pain to the right ankle. he trialed NyQuil once for his pain without any significant improvement. denies any numbness, tingling, or cold sensation to the foot. Related Data Previous Rx's Medication Instructions Recorded ibuprofen 600 mg tablet 600 mg PO Q6H PRN pain #60 tabs 11/29/20 acetaminophen 500 mg capsule 500 mg PO Q6H PRN fever or pain 01/12/21 #14 caps Allergies Allergy/AdvReac Type Severity Reaction Status Date / Time No Known Allergies Allergy Verified 02/17/23 16:21 Review of Systems Review of Systems: Yes all other systems are reviewed and are negative PMFSH Past Medical History Attestation statement: The following information was validated with the patient. Source: old records reviewed Medical History Gastritis HTN (hypertension) Social History Social History Alcohol intake: never Advance Directives: No Advance Directives Information Provided: No Physical Exam Vital Signs: Vital Signs: Last Vital Signs Temp 97.8 F 02/17/23 16:22 Pulse 99 02/17/23 16:22 Resp 18 02/17/23 16:22 BP 145/93 H 02/17/23 16:22 Pulse Ox 96 02/17/23 16:22 BMI result Body Mass Index 33.1 Appearance: Alert.?Oriented to person, place and time. No acute distress.?Normal affect. Neck: Normal inspection.? Neck supple.?? CVS: Heart sounds normal. Normal heart rate and rhythm.? Pulses normal.?? Respiratory: No respiratory distress.? Lung sounds clear to auscultation bilaterally?? Abdomen: Soft and non-tender. Skin: Skin warm and dry.? Normal skin color.? Extremities: No lower extremity edema.? No calf ttp. Tenderness upon palpation of the midfoot with faint bruising 2nd through 5th metatarsal without obvious deformity? Neuro: Moves all extremities spontaneously. Sensation intact bilaterally. No focal neuro deficits. Ambulates with slow antalgic gait. Course Course Course Narrative: RME - 42 yo Gabonese speaking male presents to the ER for evaluation of right ankle pain and swelling after he injured it 3 days ago. he states his foot slipped between the pedals when he was driving. he has been having pain since along with difficulty ambulating Plan: x-ray Medical Decision Making Medical Decision Making MDM Narrative: patient is a 42-year-old male presenting to emergency department for evaluation of traumatic right foot / ankle pain as per HPI. At the time my examination there is no significant deformity, tenderness upon palpation of the mid foot. XR imaging reveals no acute fracture or dislocation to the right ankle/ foot. Patient placed in a postop shoe, was offered NSAID while in the emergency department however he declines. Pain at this time is most consistent with contusion of the foot and ankle sprain. Advised outpatient follow-up with primary care provider. Reviewed worrisome signs and symptoms that would warrant re-evaluation in the emergency department. All questions answered. Stable for discharge. Differential Diagnosis Differential Diagnoses: The differential diagnosis associated with the presentation includes ( fracture, dislocation, contusion, sprain, plantar fasciitis) Independent Interpretation I performed an independent interpretation of an: Plain X-Ray ( have personally interpreted XR imaging of the right ankle and foot and agree with radiologist impression, there is no acute fracture or dislocation) Radiology Impression Discussion of test interpretation with radiology: I have reviewed the radiologist's reading. Radiologist Impression: XR/XR ankle RT min 3V IMPRESSION: No evidence of an acute osseous injury. XR/XR foot RT min 3V IMPRESSION: No evidence of an acute osseous injury. Prescription Management I considered prescription management with: Pain Medication Discharge Plan Discharge Clinical Impression: Ankle sprain, Contusion of right foot Patient Disposition: Home, Self-Care Additional Instructions: please be sure to rest over the next few days, apply ice to the area for 10-15 minutes 3-4 times daily, elevate the leg when possible. You can take ibuprofen 200 mg, 3 tablets (600mg) every 6-8 hours as needed for pain, in addition to Tylenol 500 mg, 2 tablets (1,000mg) every 4-6 hours as needed for pain, but not to exceed 3 doses daily (3,000mg).? Wear the shoe as provided to take weight off of the painful area of your foot. Follow-up with your primary care provider as needed. Prescriptions: No Action ibuprofen 600 mg tablet 600 mg PO Q6H PRN (Reason: pain) Qty: 60 0RF acetaminophen 500 mg capsule 500 mg PO Q6H PRN (Reason: fever or pain) Qty: 14 0RF Referrals: Yaritza Banegas MD [Primary Care Provider] -
[2023-02-17] MEDS: Acetaminophen 325 MG TABLET 975 MG PO (18:43)
== END 2023-02-17 19:08 | disposition home or self-care (01) ==
PROVIDERS: Emergency Provider Emergency Medicine; PCP Internal Medicine
DX: S93.401A Sprain of unspecified ligament of right ankle, initial encounter (principal); S90.31XA Contusion of right foot, initial encounter; W23.0XXA Caught, crushed, jammed, or pinched between moving objects, initial encounter; Y93.89 Activity, other specified; Y92.810 Car as the place of occurrence of the external cause; Y99.9 Unspecified external cause status
CPT/HCPCS: 73610; 73630; 99283

== ENCOUNTER 2023-06-01 14:52 | Outpatient (REF) | payer OTHER, SELFPAY ==
[2023-06-03 19:34] LABS: TS Negative Control Passed; TS Panel A 0; TS Panel B 0; TS Positive Control Passed; TSpotTB Negative (Negative)
== END 2023-06-01 14:53 | disposition home or self-care (01) ==
LOC: HO.HHCL 14:52
PROVIDERS: Visit Provider Internal Medicine
DX: Z11.1 Encounter for screening for respiratory tuberculosis (principal)
CPT/HCPCS: 36415; 86481

== ENCOUNTER 2023-09-12 12:25 | Emergency (ER) | payer OTHER, SELFPAY ==
--- NOTE | 2023-09-12 12:53 | ED_ITS ---
HPI - General Adult General Chief complaint: General Medical Stated complaint: Requesting covid test no symptoms Time Seen by Provider: 09/12/23 15:08 Source: patient, family and employment recruiter Mode of arrival: ambulatory Limitations: no limitations History of Present Illness HPI narrative: 42 yo male with HTN and gastritis here with c/o covid exposure on sunday is vaccinated - at this time has no complaints MD complaint: covid exposure Onset (ago): day(s) (sunday) Severity: mild Relieving factors: none Exacerbating factors: none Associated symptoms: denies other symptoms Treatments prior to arrival: none Related Data Previous Rx's Medication Instructions Recorded ibuprofen 600 mg tablet 600 mg PO Q6H PRN pain #60 tabs 11/29/20 acetaminophen 500 mg capsule 500 mg PO Q6H PRN fever or pain 01/12/21 #14 caps acetaminophen 500 mg tablet 1,000 mg (2 x 500 mg) PO Q6H PRN 02/17/23 pain #30 tabs ibuprofen 600 mg tablet 600 mg PO Q8H PRN pain #30 tabs 02/17/23 Allergies Allergy/AdvReac Type Severity Reaction Status Date / Time No Known Allergies Allergy Verified 09/12/23 12:59 Review of Systems Review of Systems: Constitutional : No Fever, No Chills, No Fatigue ENT/Mouth : No sore throat, No Rhinorrhea Eyes: No Eye Pain, No Swelling, No Redness Cardiovascular : No Chest Pain, No SOB, No Dyspnea on Exertion Respiratory : No Cough, No Sputum Gastrointestinal : No Nausea, No Vomiting, No Diarrhea, No abdominal Pain Genitourinary : No Dysuria, No Urinary Frequency, No Hematuria, Musculoskeletal : No joint pain, No Myalgias, No Joint Swelling Skin : No Skin Lesions, No rash Neuro : No Weakness, No Numbness, No Dizziness, no Headache Psych : No Anxiety/Panic, No Depression Heme/Lymph: No Bruising, No Bleeding,No Lymphadenopathy Endocrine : No Polyuria, No Polydipsia All other systems reviewed and are negative [facility] Past Medical History Attestation statement: The following information was validated with the patient. Source: old records reviewed Medical History HTN (hypertension) Gastritis Social History Social History (Updated 09/12/23 @ 15:28 by Charlene Marroquin DO) Alcohol intake: never Patient Tobacco Use Status: Never used Tobacco Physical Exam ED Vital Signs: Vital Signs - 24 hr 09/12/23 12:59 Temperature 97.6 F Pulse Rate 85 Respiratory Rate 16 Blood Pressure 143/94 H Pulse Oximetry 98 Oxygen Delivery Method Room Air BMI result Body Mass Index 32.0 Appearance: Alert. Oriented X3. No acute distress. Eyes: Pupils equal, round and reactive to light. ENT: Pharynx normal. Neck: Normal inspection. Neck supple. CVS: Normal heart rate and rhythm. Pulses normal. Respiratory: No respiratory distress. Breath sounds normal. Abdomen: Soft and nontender. Skin: Skin warm and dry. Normal skin color. Normal skin turgor. Extremities: No lower extremity edema. No calf ttp Neuro: Oriented X 3. No motor deficit. No sensory deficit. Course Course Course Narrative: RME:?42 year old Venezuelan speaking male with no significant pmhx here requesting COVID test after being exposed to his COVID positive son at home. Son tested positive yesterday. He denies any symptoms. No concerns at this time. Denies fevers, chills, sore throat, cough, chest pain, sob or dyspnea, N/V/D. Full HPI, ROS and PE to be performed by the primary ED provider. Medical Decision Making Medical Decision Making [facility] Narrative: 42 yo male with HTN vaccinated against COVID here with covid exposure asymptom atic wants covid test - 3 other family members here for same does not want paxlovid Differential Diagnosis Differential Diagnoses: The differential diagnosis associated with the presentation includes covid and viral syndrome Lab Data [facility] Lab Attestation statement: I reviewed the patient's lab results. Labs: Lab Results 09/12/23 Range/Units 14:36 COVID-19 ([facility]) Positive A (Negative) COVID-19 Clin Com See Note Independent Historian Clinical information obtained from an independent historian. History obtained from or confirmed by: Spouse External Record Review External record reviewed: Inpatient record Prescription Management I considered prescription management with: Antiviral Discharge Plan Discharge Clinical Impression: COVID-19 Patient Disposition: Home, Self-Care Instructions: COVID-19 (Coronavirus Disease 2019) (ED) Additional Instructions: return for chest pain, trouble breathing, confusion, inability to eat or drink or any other concerns. Regrese si tiene dolor en el pecho, dificultad para respirar, confusi?n, incapacidad para comer o beber o cualquier otra inquietud. Prescriptions: No Action ibuprofen 600 mg tablet 600 mg PO Q6H PRN (Reason: pain) Qty: 60 0RF acetaminophen 500 mg capsule 500 mg PO Q6H PRN (Reason: fever or pain) Qty: 14 0RF ibuprofen 600 mg tablet 600 mg PO Q8H PRN (Reason: pain) Qty: 30 0RF acetaminophen 500 mg tablet 1,000 mg PO Q6H PRN (Reason: pain) Qty: 30 0RF Print Language: Venezuelan
[2023-09-12 12:59] VITALS: BP 143/94; PULSE 85; RESP 16; TEMP 36.4; O2SAT 98; BMI 32.0
[2023-09-12 15:00] LABS: COVID-19 Test Positive (Negative); IDNOW Serial# 152EDE1D
== END 2023-09-12 15:28 | disposition home or self-care (01) ==
LOC: HO.ED 15:26
PROVIDERS: Physician Assistant Medical; Emergency Provider Emergency Medicine
DX: U07.1 COVID-19 (principal)
CPT/HCPCS: 87635; 99282; 99283

== ENCOUNTER → 2023-12-06 13:43 | Outpatient (REF) | payer OTHER, SELFPAY | LOC: HO.SL 13:43 | PROVIDERS: PCP Internal Medicine; Visit Provider Internal Medicine | DX: Z13.89 Encounter for screening for other disorder (principal) ==

== ENCOUNTER 2023-12-06 17:28 | Day surgery (SDC) | payer OTHER, SELFPAY ==
--- NOTE | ~2023-12-06 | CT_ITS ---
EXAMINATION: CT ABDOMEN AND PELVIS WITH CONTRAST CLINICAL INFORMATION: Reason for Exam rectal pain, R/ O diverticulitis, rectal abscess COMPARISON: 06/13/2013 TECHNIQUE: Multidetector volumetric images were obtained from the superior aspect of the liver through the pubic symphysis following administration 85 mL of Omnipaque 350 intravenous contrast. Sagittal and coronal reformatted images were obtained on the technologist's workstation. Oral contrast: No This CT examination was performed using dose optimization techniques as appropriate, variously including the following: *Automated exposure control *Adjustment of mA and/or kV according to patient size (this includes techniques or standardized protocols for targeted exams where dose is matched to indication/reason for exam; i.e. extremities or head) *Use of iterative reconstruction technique DLP: 836 mGy-cm FINDINGS: LUNG BASES: Bibasilar dependent atelectasis. LIVER, GALLBLADDER, AND BILIARY TREE: The liver is normal in size, shape, and attenuation. No focal hepatic lesion or biliary ductal dilatation is present. The gallbladder is unremarkable with no evidence of radiopaque gallstones, gallbladder wall thickening, or obvious pericholecystic inflammatory changes. PANCREAS: Unremarkable. SPLEEN: Unremarkable. ADRENAL GLANDS: Unremarkable. KIDNEYS AND URETERS: Bilateral nephrograms are symmetric. No hydronephrosis or obstructing calculus identified. Small hypodensity in the right kidney favors a cyst; no follow-up recommended. BLADDER: Unremarkable. GASTROINTESTINAL TRACT: There is a hypoattenuating collection measuring up to approximately 2 cm in diameter in the lower right perirectal region on image 113/130, suspicious for perirectal abscess. No evidence of bowel obstruction or significant wall thickening. Mildly prominent appendix, though without surrounding inflammation to suggest appendicitis. No free fluid or free air is seen. ABDOMINAL WALL: Small fat-containing inguinal hernias. LYMPH NODES: Normal. VASCULAR: Unremarkable. PELVIC VISCERA: Unremarkable. OSSEOUS STRUCTURES: Scattered mild endplate osteophytes in the spine. CT/CT abdomen pelvis w IV con IMPRESSION: Low-density collection in the lower right perirectal region measuring up to 2 cm, suspicious for perirectal abscess.
--- NOTE | ~2023-12-06 | XR_ITS ---
EXAMINATION: XR ABDOMEN KUB CLINICAL INDICATION: Constipation COMPARISON: None available. TECHNIQUE: Supine frontal view of the abdomen. FINDINGS: There are no suspicious calcifications. There is a moderate amount of fecal residue in the proximal colon. No significant fecal residue in the rectum or distal colon. No evidence of small bowel obstruction. No convincing evidence of free intraperitoneal gas on this supine view. No suspicious abnormality in the visualized lower chest XR/XR KUB IMPRESSION: Moderate fecal residue in the proximal colon. No evidence of bowel obstruction
[2023-12-06 17:34] VITALS: BP 135/62; PULSE 100; RESP 18; TEMP 36.7; O2SAT 98; BMI 34.1
--- NOTE | 2023-12-06 17:34 | ED.ABDPAIN ---
HPI - Abdominal Pain General Chief Complaint: General Medical Stated Complaint: constipation rectal pain Time Seen by Provider: 12/07/23 00:10 Source: patient, family ( spouse) and paraprofessional interpreter Mode of arrival: ambulatory Limitations: no limitations History of Present Illness HPI narrative: 43 year male without significant past medical history presented with severe anal pain started 2 days ago after patient had bowel movement with constipation patient had to strain vigorously patient has been constant for the past few days this mostly and rectum but radiates to the front into both testicles and scrotum feels like something pulsating in the pelvic area, + passing flatus,+ hard stool bowel movement, no fever, no chills, no nausea, no vomiting, declined history of intra-abdominal surgery in the past. Sexually active with 1 partner no issue of STDs , no dysuria, no frequency urination, no urethral discharge. Related Data Previous Rx's ?Medication ?Instructions ?Recorded ibuprofen 600 mg tablet 600 mg PO Q6H PRN pain #60 tabs 11/29/20 acetaminophen 500 mg capsule 500 mg PO Q6H PRN fever or pain 01/12/21 #14 caps acetaminophen 500 mg tablet 1,000 mg (2 x 500 mg) PO Q6H PRN 02/17/23 pain #30 tabs ibuprofen 600 mg tablet 600 mg PO Q8H PRN pain #30 tabs 02/17/23 Allergies Allergy/AdvReac Type Severity Reaction Status Date / Time No Known Allergies Allergy Verified 12/06/23 17:39 Review of Systems Review of Systems All other systems are reviewed and are negative Constitutional: Reports as per HPI and Reports no additional constitutional complaints Eyes: Reports as per HPI and Reports no additional eye complaints Reports system reviewed and no additional complaints, except as documented Cardiovascular: Reports as per HPI and Reports no additional cardiovascular complaints Respiratory: Reports as per HPI and Reports no additional respiratory complaints Gastrointestinal: Reports as per HPI and Reports no additional gastrointestinal complaints Genitourinary: Reports no additional female genitourinary complaints Musculoskeletal: Reports no additional musculoskeletal complaints Skin/Breast: Reports system reviewed and no additional complaints, except as docu Psychiatric: Reports no additional psychiatric complaints Endocrine: Reports no additional endocrine complaints Hematologic/Lymphatic: Reports no additional hematologic/lymphatic complaints Allergic/Immunologic: Reports no additional allergic/immunologic complaints Reports system reviewed and no additional complaints, except as documented and Reports Abnormal speech present [facility] Past Medical History Medical History HTN (hypertension) Gastritis Social History Social History Alcohol intake: never Patient Tobacco Use Status: Never used Tobacco Smoked in Last 30 Days: No Use of substances other than those prescribed or required for medical reasons: No Advance Directives: No Advance Directives Information Provided: No Physical Exam ED Vital Signs: Vital Signs - 24 hr 12/06/23 17:34 12/06/23 22:45 12/07/23 01:48 Temperature 98.0 F 98.1 F Pulse Rate 100 89 Respiratory Rate 18 18 16 Blood Pressure 135/62 131/84 Pulse Oximetry 98 98 Oxygen Delivery Method Room Air Room Air 12/07/23 02:20 12/07/23 02:20 12/07/23 05:15 Temperature 98.2 F 98.2 F 98.2 F Pulse Rate 89 89 89 Respiratory Rate 16 16 16 Blood Pressure 114/71 114/71 114/71 Pulse Oximetry 94 Oxygen Delivery Method Room Air 12/07/23 11:10 Temperature 98.6 F Pulse Rate 79 Respiratory Rate 16 Blood Pressure 134/85 Pulse Oximetry 96 Oxygen Delivery Method Room Air BMI result Body Mass Index 34.1 Vital signs have been reviewed and appear to be correct. Blood pressure elevated. Heart rate normal. Respiratory rate normal. Temperature normal. Oxygen saturation normal. Appearance: Alert. Oriented X3. No acute distress. Head: Normal external exam. Normocephalic. Atraumatic. No Hanson signs noted. No raccoon eyes noted Eyes: PERRLA. EOMI. Conjunctiva and sclera normal. Eyelids normal. ENT: TM's Normal. Pharynx normal. Uvula midline. Moist mucous membranes. No trismus noted. No drooling noted. No muffled voice noted. Neck: Normal inspection. Neck supple. FROM. No adenopathy. Thyroid Normal. No meningeal signs. No neck mass noted. CVS: Normal heart rate and rhythm. Heart sound normal. No murmurs noted. Pulses normal throughout. Respiratory: No respiratory distress. Painless inspiration. Breath sounds normal. No wheezes/rales/rhonchi noted. Chest nontender. No accessory muscle usage noted or decreased air movement noted. Abdomen: Soft and nontender. Bowel sounds normal in all 4 quadrants. No distention noted. No organomegaly noted. No visible injury noted. Rectal exam: limited exam due to severe pain, No anal fissure, no hemorrhoids, no fluctuation, no mass, brown stool guaiac negative. exam: no scrotal pain or swelling or dicoloration, no testicular tenderness, patent cremastric reflex b/l. Back: No CVA tenderness. Full range of motion noted. Skin: Skin warm and dry. Normal skin color. Normal skin turgor. No rashes/lesions/lacerations noted. Extremities: No lower extremity edema. Extremities exhibit normal range of motion. Extremities nontender. Neuro: Oriented X 3. Cranial nerve exam: II-XII are grossly intact No motor deficit. No sensory deficit. Reflexes normal. Course Course Course Narrative: This is a rapid medical exam completed by Malorie MELENDREZN: Additional HPI, ROS, PE not included below will be deferred to primary provider. Reports severe rectal pain starting on Sunday when he moves his bowels, walks, and sits. Small BM earlier today without BRBPR or melena and states the stool was small 'balls'. Reports decreased flatus. Denies history of hemorrhoids, fevers, chills. Abdomen semi-firm, NL BS Plan: colace and miralax. KUB ordered Reevaluation(s) Reevaluation #1: 43-year-old male came in with severe rectal pain after had hard stool bowel movement 2 days ago, CT of the abdomen and pelvis with IV contrast showing perirectal abscess the case was discussed with Dr. Marcos who will see the patient in the ED. Time: 05:39 Reevaluation #2: Patient is waiting for surgical consultation by Dr. Marcos, signed out to Dr. Marroquin. Time: 07:00 Medical Decision Making Differential Diagnosis Differential Diagnoses: The differential diagnosis associated with the presentation includes (Diverticulitis, kidney stone, complicated hemorrhoid, rectal abscess, constipation.) Admission/Observation Consideration of admission/observation: Escalation of care including admission/observation considered Consult Healthcare Provider Management of the patient was discussed with: Rn Surgical (Dr. Marcos) Lab Data MDM Lab Attestation statement: I reviewed the patient's lab results. 12/07/23 01:05 12/07/23 01:05 Labs: Lab Results 12/07/23 12/07/23 Range/Units 01:05 01:16 WBC 10.5 (4.8-10.8) X10*3/uL RBC 5.37 (4.60-5.80) X10*6/uL Hgb 15.7 (14.0-18.0) g/dl Hct 45.3 (42.0-52.0) % MCV 84.4 (80.0-98.0) fL MCH 29.2 (27.0-33.0) pg MCHC 34.7 (31.0-36.0) g/dl RDW 12.3 (11.0-16.0) % Plt Count 230 (160-400) X10*3/uL MPV 11.0 (9.4-12.4) fL Immature Gran % (Auto) 0.4 (0.0-0.4) % Neut % (Auto) 73.0 (45-73) % Lymph % (Auto) 16.6 L (20-40) % [place] % (Auto) 8.6 (2-11) % Eos % (Auto) 0.7 (0-4) % Baso % (Auto) 0.7 (0-2) % Lymph # (Auto) 1.7 (1.2-4.9) X10*3/uL [place] # (Auto) 0.9 (0.1-1.2) X10*3/uL Eos # (Auto) 0.1 (0.0-0.4) X10*3/uL Baso # (Auto) 0.1 (0.0-0.2) X10*3/uL Abs Immat Gran (auto) 0.04 H (0.00-0.03) X10*3/uL Absolute Neuts (auto) 7.6 (2.0-8.3) x10*3/uL Absolute Nucleated RBC 0.000 (0.0-0.012) X10*3/uL Nucleated RBC % (auto) 0.0 (0.0-0.2) /100WBC Sodium 138 (135-145) mmol/L Potassium 3.4 (3.3-5.1) mmol/L Chloride 102 (96-108) mmol/L Carbon Dioxide 24 (22-29) mmol/L Anion Gap 15 (12-20) BUN 12 (9-16) mg/dL Creatinine 1.12 (0.5-1.4) mg/dL Estim Creat Clear Calc 93.0 Estimated GFR > 60 Random Glucose 109 (60-115) mg/dL Calcium 9.6 (8.4-10.2) mg/dL Total Bilirubin 1.2 H (0.0-1.0) mg/dL Direct Bilirubin 0.4 (0.0-0.5) mg/dL AST 17 (5-37) U/L ALT 23 (0-40) U/L Alkaline Phosphatase 49 (39-117) U/L Total Protein 7.7 (6.5-8.0) g/dL Albumin 4.4 (3.5-5.0) g/dL Lipase 27 (8-78) U/L Chlam trachomat DNA PCR NOT DETECTED (Not Detect.) N.gonorrhoeae DNA (PCR) NOT DETECTED (Not Detect.) Independent Interpretation I performed an independent interpretation of an: CT Scan (Abdomen pelvis:Low-density collection in the lower right perirectal region measuring up to 2 cm, suspicious for perirectal abscess. ) Radiology Impression Discussion of test interpretation with radiology: I have reviewed the radiologist's reading. Medications Administered Discontinued Medications Generic Name Dose Route Start Last Admin Trade Name Freq PRN Reason Stop Dose Admin Docusate Sodium 200 mg 12/06/23 17:35 12/06/23 17:44 Docusate Sodium 100 Mg Capsule PO 12/06/23 17:36 200 mg ONCE ONE Administration Sodium Chloride 1,000 mls @ 999 mls/hr 12/07/23 00:33 12/07/23 04:25 Ns IV 12/07/23 01:33 Infused .Q1H1M ONE Infusion Iohexol 85 ml 12/07/23 02:21 12/07/23 02:43 Iohexol 350 Mg/Ml 100 Ml Infus..Btl IV 12/07/23 02:22 85 ml ONCE ONE Administration Ketorolac Tromethamine 30 mg 12/07/23 00:33 12/07/23 01:49 Ketorolac Tromethamine 30 Mg/Ml Vial IVPUSH 12/07/23 00:34 30 mg ONCE ONE Administration Morphine Sulfate 2 mg 12/07/23 00:33 12/07/23 01:48 Morphine Sulfate 2 Mg/Ml Cartridge IVPUSH 12/07/23 00:34 2 mg ONCE ONE Administration Protocol Morphine Sulfate 4 mg 12/07/23 09:18 12/07/23 09:24 Morphine Sulfate 4 Mg/Ml Cartridge IVPUSH 12/07/23 09:19 4 mg ONCE ONE Administration Protocol Polyethylene Glycol 17 gm 12/06/23 17:39 12/06/23 17:44 Polyethylene Glycol 3350 17 Gm Powd.Pack PO 12/06/23 17:40 17 gm ONCE ONE Administration Discharge Plan Discharge Clinical Impression: Nova-rectal abscess Patient Disposition: Still a Patient
[2023-12-06] MEDS: Docusate Sodium 100 MG CAPSULE 200 MG PO (17:44)
[2023-12-06] MEDS: polyethylene glycoL 3350 17 GM POWD.PACK PO (17:44)
[2023-12-06 22:45] VITALS: BP 131/84; PULSE 89; RESP 18; TEMP 36.7; O2SAT 98
[2023-12-07] VITALS (10 sets, daily range): BP systolic 97–142; BP diastolic 60–85; PULSE 75–99; RESP 16–20; TEMP 36.8–37.2; O2SAT 94–99
[2023-12-07 01:09] LABS: MANUAL DIFF FLAG NO
[2023-12-07 01:10] LABS: Basophils Absolute Auto 0.1 X10*3/uL (0.0-0.2); Basophils Percent Auto 0.7 % (0-2); Eosinophils Absolute Auto 0.1 X10*3/uL (0.0-0.4); Eosinophils Percent Auto 0.7 % (0-4); Hematocrit 45.3 % (42.0-52.0); Hemoglobin 15.7 g/dl (14.0-18.0); Imm Gran Abs Auto 0.04 X10*3/uL (0.00-0.03); Imm Gran Pct Auto 0.4 % (0.0-0.4); Lymphocytes Absolute Auto 1.7 X10*3/uL (1.2-4.9); Lymphocytes Percent Auto 16.6 % (20-40); Mean Corpuscular HGB Conc 34.7 g/dl (31.0-36.0); Mean Corpuscular Hemoglobin 29.2 pg (27.0-33.0); Mean Corpuscular Volume 84.4 fL (80.0-98.0); Monocytes Absolute Auto 0.9 X10*3/uL (0.1-1.2); Monocytes Percent Auto 8.6 % (2-11); Neutrophils Absolute Auto 7.6 x10*3/uL (2.0-8.3); Platelet Count 230 X10*3/uL (160-400); Red Blood Count 5.37 X10*6/uL (4.60-5.80); Red Cell Distribution Width 12.3 % (11.0-16.0); White Blood Count 10.5 X10*3/uL (4.8-10.8)
[2023-12-07 01:30] LABS: Alanine Aminotransferase 23 U/L (0-40); Albumin Level 4.4 g/dL (3.5-5.0); Alkaline Phosphatase 49 U/L (39-117); Anion Gap 15 (12-20); Aspartate Amino Transferase 17 U/L (5-37); Bilirubin Direct 0.4 mg/dL (0.0-0.5); Bilirubin Total 1.2 mg/dL (0.0-1.0); Blood Urea Nitrogen 12 mg/dL (9-16); Calcium 9.6 mg/dL (8.4-10.2); Carbon Dioxide 24 mmol/L (22-29); Chloride 102 mmol/L (96-108); Estimated Glomerular Filt Rate > 60; Glucose Random 109 mg/dL (60-115); Lipase 27 U/L (8-78); Potassium 3.4 mmol/L (3.3-5.1); Sodium 138 mmol/L (135-145); Total Protein 7.7 g/dL (6.5-8.0)
[2023-12-07] MEDS: 0.9 % Sodium Chloride 1,000 ML 999 ML IV (01:43)
[2023-12-07] MEDS: Morphine Sulfate 2 MG/ML CARTRIDGE IVPUSH (01:48)
[2023-12-07] MEDS: Ketorolac Tromethamine 30 MG/ML VIAL IVPUSH (01:49)
[2023-12-07] MEDS: iohexoL 350 MG/ML 100 ML INFUS..BTL 85 ML IV (02:43)
[2023-12-07 02:55] LABS: CT PCR NOT DETECTED (Not Detect.); NG PCR NOT DETECTED (Not Detect.)
[2023-12-07] MEDS: Morphine Sulfate 4 MG/ML CARTRIDGE IVPUSH (09:24)
--- NOTE | 2023-12-07 11:56 | PC.NURSE ---
Report given to [facility]
--- NOTE | 2023-12-07 12:37 | PC.NURSE ---
Patient transported to OR by [facility] spike machine operator at 11:50am
--- NOTE | 2023-12-07 12:44 | P.HPGS_ITS ---
History of Present Illness History of Present Illness Date of Service: 12/07/23 Chief complaint: constipation rectal pain Narrative: Santos Nicolas is a 43 year old male presents to emergency department for evaluation of a proximally 2 day history of progressively worsening perirectal pain. Workup in the emergency department including CT scan demonstrated findings of a right perirectal abscess. Patient has 1 partner. He denies any urinary issues or complaints. He has never had such pain or symptoms before. Chart was reviewed and patient evaluated PMFSH Past Medical History Medical History HTN (hypertension) Gastritis Social History Social History Alcohol intake: never Patient Tobacco Use Status: Never used Tobacco Smoked in Last 30 Days: No Second Hand Smoke Exposure: No Use of substances other than those prescribed or required for medical reasons: No Are you DNR?: No Advance Directives: No Advance Directives Information Provided: No Advance Directives on File: No Meds Allergies Allergy/AdvReac Type Severity Reaction Status Date / Time No Known Allergies Allergy Verified 12/06/23 17:39 Physical Exam Vital Signs: Vital Signs: Last Vital Signs Temp 98.2 F 12/07/23 12:30 Pulse 99 12/07/23 12:30 Resp 16 12/07/23 12:30 BP 127/79 12/07/23 12:30 Pulse Ox 97 12/07/23 12:30 O2 Del Method Room Air 12/07/23 12:30 BMI result Body Mass Index 34.1 Chest: Other: Chest breath sounds bilaterally, HS 1 in 2 GI: Other: Abdomen is soft, benign. Anorectal area more on the right is very tender to palpation. Question of fluctuance consistent with abscess. Rectal exam def erred secondary to patient's marked discomfort Results Results Labs: Short CBC 12/07/23 Range/Units 01:05 WBC 10.5 (4.8-10.8) X10*3/uL Hgb 15.7 (14.0-18.0) g/dl Hct 45.3 (42.0-52.0) % Plt Count 230 (160-400) X10*3/uL BMP 12/07/23 01:05 Sodium 138 Potassium 3.4 Chloride 102 Carbon Dioxide 24 BUN 12 Creatinine 1.12 Calcium 9.6 Liver Function 12/07/23 Range/Units 01:05 Total Bilirubin 1.2 H (0.0-1.0) mg/dL Direct Bilirubin 0.4 (0.0-0.5) mg/dL AST 17 (5-37) U/L ALT 23 (0-40) U/L Alkaline Phosphatase 49 (39-117) U/L Albumin 4.4 (3.5-5.0) g/dL Assessment and Plan (1) Nova-rectal abscess: Status: Acute Plan Risks, benefits, alternatives of incision and drainage of perirectal abscess were reviewed the patient and included but not limited to bleeding, infection, recurrence, incontinence, numbness, pain, scarring and the patient wished to proceed. All questions answered. Arrangements were made for this for today. Quality Stroke Does the patient have a stroke diagnosis?: No VTE Prior VTE?: No VTE Risk Level:: Surgical - low VTE Device Contraindication: Treatment Not Indicated VTE Drug Contraindication: Treatment Not Indicated Procedures Date of Service Date of Service: 12/07/23
--- NOTE | 2023-12-07 15:35 | HO.ANESPROP2 ---
HPI - Anesthesia Eval Consult details Narrative: 43 yo M admitted with rancho-rectal abscess PMFSH Active Problems Active Problems: All Active Problems Rancho-rectal abscess (Acute) COVID-19 (Acute) Past Medical History Medical History HTN (hypertension) Gastritis Family History Family history of problems with anesthesia: No Surgical History History of Problems with Anesthesia: No Social History Social History Alcohol intake: never Patient Tobacco Use Status: Never used Tobacco Smoked in Last 30 Days: No Second Hand Smoke Exposure: No Use of substances other than those prescribed or required for medical reasons: No Are you DNR?: No Advance Directives: No Advance Directives Information Provided: No Advance Directives on File: No Meds Allergies Allergy/AdvReac Type Severity Reaction Status Date / Time No Known Allergies Allergy Verified 12/06/23 17:39 Active Medications: Current Medications Sodium Chloride (0.9 % Sodium Chloride Flush 3 Ml Syringe) 3 ml IVFLUSH QSHIFT [facility] Exam Exam Date and Time: December 07, 2023 1535 Height,Weight and Vital Signs: Height 5 ft 6 in Weight 95.8 kg Last Vital Signs Temp 98.2 F 12/07/23 12:30 Pulse 99 12/07/23 12:30 Resp 16 12/07/23 12:30 BP 127/79 12/07/23 12:30 Pulse Ox 97 12/07/23 12:30 O2 Del Method Room Air 12/07/23 12:30 Pertinent Lab Results Pertinent Lab Results: Laboratory Tests 12/07/23 12/07/23 01:05 01:16 WBC 10.5 RBC 5.37 Hgb 15.7 Hct 45.3 MCV 84.4 MCH 29.2 MCHC 34.7 RDW 12.3 Plt Count 230 MPV 11.0 Immature Gran % (Auto) 0.4 Neut % (Auto) 73.0 Lymph % (Auto) 16.6 L [place] % (Auto) 8.6 Eos % (Auto) 0.7 Baso % (Auto) 0.7 Lymph # (Auto) 1.7 [place] # (Auto) 0.9 Eos # (Auto) 0.1 Baso # (Auto) 0.1 Abs Immat Gran (auto) 0.04 H Absolute Neuts (auto) 7.6 Absolute Nucleated RBC 0.000 Nucleated RBC % (auto) 0.0 Sodium 138 Potassium 3.4 Chloride 102 Carbon Dioxide 24 Anion Gap 15 BUN 12 Creatinine 1.12 Estim Creat Clear Calc 93.0 Estimated GFR > 60 Random Glucose 109 Calcium 9.6 Total Bilirubin 1.2 H Direct Bilirubin 0.4 AST 17 ALT 23 Alkaline Phosphatase 49 Total Protein 7.7 Albumin 4.4 Lipase 27 Chlam trachomat DNA PCR NOT DETECTED N.gonorrhoeae DNA (PCR) NOT DETECTED Airway Mallampati Class: III TM Dist: >3cm Neck ROM: Full Loose/Missing/Broken Teeth: No (patient denies any loose or broken teeth) Heart: S1S2 Lungs: CTAB Assessment and Plan Assessment Anesthesia Assessment: Anesthesia Plan Discussed and Chart Reviewed Final Anesthetic Review Family History of Problems with Anesthesia: No History of Problems with Anesthesia: No NPO: Yes ASA Class: II Final Preanesthetic Review: No Changes in Pt Med Stat, Meds/Allgs Chart Reviewed, Consent Obtained/Reviewed (translator and interpreter at bedside) and Anes Risks/Benef Reviewed Patient Risk: Low Procedure Risk: Low Anesthetic Plan Anesthetic Plan: GA and Agree w/ Assess. and Plan Disposition: Standard PACU
--- NOTE | 2023-12-07 16:25 | P.OP_ITS ---
Operative Note Operative Note Date of Service: 12/07/23 Narrative: Preoperative diagnosis: [] Right perirectal abscess Postop diagnosis: [] The same Procedure [] incision and drainage right perirectal abscess Surgeon: [] [employer] Licensee: [] Thony Type of Anesthesia: [] General Indication for surgery: [] Proximally 3 cm right para rectal perirectal abscess. Cultures obtained. Findings: [] Patient was taken the operating room, placed on operative table supine position, after an adequate level of general anesthesia was induced, patient was placed in lithotomy position. Rectal exam was performed and fluctuance and find her needle demonstrated a right perirectal abscess in the 10 o'clock position several cm away from the anal canal.. This was uneventfully incised and drained. Copious amounts of purulent material retrieved. Cultures were obtained. Wound was irrigated, secured hemostasis, packed, and sterile dressing applied. Wound was infiltrated 0.5% Marcaine/1% lidocaine. Sponge, needle, and instrument counts reported correct. Patient tolerated pro cedure well and emerged from anesthesia stable condition. EBL minimal
[2023-12-07] MEDS: oxyCODONE HCl Immed Release 5 MG TABLET PO (17:00)
== END 2023-12-07 18:07 | disposition home or self-care (01) ==
LOC: HO.ED 12-07 07:47 → HO.SSS 12-07 12:17
PROVIDERS: Emergency Provider Emergency Medicine; PCP Internal Medicine; Visit Provider Surgery
PROC: (CPT 46040; principal; 2023-12-07 14:00)
DX: K61.1 Rectal abscess (principal); K59.00 Constipation, unspecified; I10 Essential (primary) hypertension
CPT/HCPCS: 46040; 0353U; 36415; 74018; 74177; 80048; 80076; 83690; 85025; 87070; 87077; 87186; 87205; 99285; J0131; J0690; J1100; J1885; J2250; J2270; J2405; J2704; J2795; J3010; Q9967

== ENCOUNTER → 2023-12-07 12:03 | Outpatient (BNV) | payer OTHER, SELFPAY | PROVIDERS: Emergency Provider Emergency Medicine; PCP Internal Medicine; Visit Provider Surgery | DX: K61.1 Rectal abscess (principal) | CPT/HCPCS: 46040; 99283 ==

== ENCOUNTER 2023-12-12 15:02 | Outpatient (AMB) | payer OTHER, SELFPAY ==
--- NOTE | 2023-12-12 15:16 | A.OFFVIS_ITS ---
Intake Visit Reasons: s/p I&D perirectal abscess Intake Note: Patient here s/p I&D perirectal abscess. Patient c/o: still feels tender to touch. Denies oozing. Still taking Cipro. SX: 12-07-23 Client Professional Required: No Accompanied by: Spouse Allergies No Known Allergies Allergy (Verified 12/12/23 15:21) HPI Comments Details: Patient presents for follow-up with a significant other status post I&D of perirectal abscess. He has marked improvement of his symptoms. He is otherwise doing well. Drainage is minimal. He has tolerating a diet. Having regular bowel habits. REPLACED BY [facility] Medical History HTN (hypertension) Gastritis Social History Alcohol intake: never Comment: counts correct Patient Tobacco Use Status: Never used Tobacco Second Hand Smoke Exposure: No Physical Exam GI Other: Abdomen is soft, benign. Anorectal incision drainage site almost completely healed. Assessment & Plan Assessment & Plan (1) Postop check: Code(s): Z09 - Encounter for follow-up examination after completed treatment for c onditions other than malignant neoplasm Category: Surgical Plan Patient has been given local instructions, and will follow-up p.r.n.. All questions answered. Coding Level of Care Code Global (57821) Diagnoses Postop check Z09
== END 2023-12-12 15:25 | disposition home or self-care (01) ==
PROVIDERS: PCP Internal Medicine; Visit Provider Surgery
DX: Z09 Encounter for follow-up examination after completed treatment for conditions other than malignant neoplasm (principal)
CPT/HCPCS: 99024

== ENCOUNTER → 2023-12-12 15:02 | Outpatient (BNVA) | payer OTHER, SELFPAY | PROVIDERS: PCP Internal Medicine; Visit Provider Surgery | DX: Z09 Encounter for follow-up examination after completed treatment for conditions other than malignant neoplasm (principal); K61.1 Rectal abscess | CPT/HCPCS: 99212 ==

== ENCOUNTER 2024-12-25 10:25 | Outpatient (REF) | payer OTHER, SELFPAY ==
--- OUTSIDE RECORDS SUMMARY | 2024-12-25 10:57 | XMS_ITS | Clinical Summary ---
Author Organization [employer] Address [address] [facility] [address] [place] [address] Care Team Providers Care Montessori Lead Teacher Name Role Phone Yaritza Banegas MD Primary Care Provide r Allergies No known active allergies Medications * This document contains information received from the source organization and may not represent a complete record from that organization. Blood Pressure Monitoring (Blood Pressure Cuff) miscIndications: Essential hypertension 1 each Once daily. 1 each 07/18/20 23 Active OLANZapine (ZyPREXA) 20 MG tablet Take 1 tablet by mouth at bedtime. Active mirtazapine (Remeron) 45 MG tablet Take 45 mg by mouth at bedtime. 08/17/19 24 Active gabapentin (Neurontin) 400 MG capsuleIndicatio ns:Chronic bilateral low back pain without sciatica,Cervica lgia TAKE 1 CAPSULE BY MOUTH THREE TIMES DAILY 90 capsule 11 03/14/20 24 Active cholecalciferol VITAMIN D (Vitamin D-3) 50 MCG (2000 UT) tablet TAKE 1 TABLET BY MOUTH EVERY DAY 90 tablet 1 07/07/20 24 Active ibuprofen 800 MG tabletIndication s:Chronic bilateral low back pain without sciatica Take 1 tablet (800 mg) by mouth every 8 (eight) hours if needed for mild pain. 30 tablet 2 08/12/19 25 Active Blood Pressure Monitoring (Blood Pressure Cuff) miscIndications: Essential hypertension 1 each Once daily. 1 each 08/12/19 25 Active losartan-hydroCH LOROthiazide (Hyzaar) 100-25 MG tablet Take 1 tablet by mouth Once per day. 30 tablet 11 08/26/19 25 026 Active omeprazole (PriLOSEC) [address] capsuleIndicatio ns:Gastroesophag eal reflux disease, unspecified whether esophagitis present TAKE 1 CAPSULE BY MOUTH DAILY 90 capsule 12/03/19 Active omeprazole (PriLOSEC) [address] capsuleIndicatio ns:Gastroesophag eal reflux disease, unspecified whether esophagitis present TAKE 1 CAPSULE BY MOUTH DAILY 90 capsule 08/18/19 025 Discontinued(Re order (will not trigger notification to Pharmacy)) omeprazole (PriLOSEC) [address] capsuleIndicatio ns:Gastroesophag eal reflux disease, unspecified whether esophagitis present TAKE 1 CAPSULE BY MOUTH DAILY 90 capsule 11/28/19 25 025 Discontinued(Re order (will not trigger notification to Pharmacy)) Active Problems Problem Noted Date Diagnosed Date Postop check 08/12/2024 COVID-19 08/12/2024 Contusion of right foot 08/12/2024 Ankle sprain 08/12/2024 Hypersomnia 10/25/2023 Loud snoring 10/25/2023 Encounter for preventative adult health care exa mination 07/18/2023 Assessment & Plan (07/18/2023 11:33 AM EST): See HPI Myopia of both eyes 07/18/2023 Tuberculosis screening 06/01/2023 GERD (gastroesophageal reflux disease) Assessment & Plan (12/02/2024 2:51 PM EDT): I advise patient to avoid NSAIDs, spicy and acid food, I advise to eat at the same time every day, I advise to elevate the head of the bed and take medications as prescribe Assessment & Plan (01/28/2024 3:59 PM EDT): I advise patient to avoid NSAIDs, spicy and acid food, I advise to eat at the same time every day, I advise to elevate the head of the bed and take medications as prescribe Assessment & Plan (06/01/2023 4:25 PM EDT): I advise patient to avoid NSAIDs, spicy and acid food, I advise to eat at the same time every day, I advise to elevate the head of the bed and take medications as prescribe Chronic bilateral low back pain without sciatica 03/12/2023 Assessment & Plan (08/12/2024 4:27 PM EST): Apply eat on affected area ibuprofen PRN Cervicalgia 03/12/2023 Anxiety and depression 12/12/2022 Assessment & Plan (06/01/2023 4:25 PM EDT): F/u with psychiatry Schizophrenia 12/12/2022 Assessment & Plan (12/02/2024 2:51 PM EDT): Continue to follow-up with psychiatrist and therapist Assessment & Plan (06/01/2023 4:26 PM EDT): F/u with psychiatry Assessment & Plan (12/18/2022 1:19 PM EDT): continue to follow with psychiatry and therapist, medications are prescribed by specialist Vitamin D deficiency 12/05/2022 Essential hypertension 12/16/2015 Assessment & Plan (12/02/2024 2:51 PM EDT): I advised: - Aerobic exercise to reduce BP. Initial goal of 30 min walk 3-5x/week. Increase as tolerated. - low-sodium diet (goal: <2g/day) and heart healthy diet such as DASH to reduce BP and prevent ASCVD. - Home BP monitoring 1-2 x day with goal of <140/90. - Seek immediate medical attention for chest pain, palpitations, SOB, syncope, or sudden changes in mental status. - Do not change or discontinue current prescriptions without first consulting health care provider Assessment & Plan (08/12/2024 4:28 PM EST): BP not at goa RTC 2 weeks with nurse for BP check if BP is persistently not at goal I will go up on hyzaar to 100/25mg daily Assessment & Plan (01/28/2024 3:59 PM EDT): - Aerobic exercise to reduce BP. Initial goal of 30 min walk 3-5x/week. Increase as tolerated. - low-sodium diet (goal: <2g/day) and heart healthy diet such as DASH to reduce BP and prevent ASCVD. - Home BP monitoring 1-2 x day with goal of <140/90. - Seek immediate medical attention for chest pain, palpitations, SOB, syncope, or sudden changes in mental status. - Do not change or discontinue current prescriptions without first consulting health care provider Assessment & Plan (10/25/2023 4:12 PM EDT): It was advise low Na diet, weight reduction and to take his medication every day I will switch medication to losartan-hydrochlorothiazide 50/12.5mg combo RTC 3 months Assessment & Plan (07/18/2023 11:33 AM EST): - Aerobic exercise to reduce BP. Initial goal of 30 min walk 3-5x/week. Increase as tolerated. - low-sodium diet (goal: <2g/day) and heart healthy diet such as DASH to reduce BP and prevent ASCVD. - Home BP monitoring 1-2 x day with goal of <140/90. - Seek immediate medical attention for chest pain, palpitations, SOB, syncope, or sudden changes in mental status. - Do not change or discontinue current prescriptions without first consulting health care provider Assessment & Plan (06/01/2023 4:25 PM EDT): - Aerobic exercise to reduce BP. Initial goal of 30 min walk 3-5x/week. Increase as tolerated. - low-sodium diet (goal: <2g/day) and heart healthy diet such as DASH to reduce BP and prevent ASCVD. - Home BP monitoring 1-2 x day with goal of <140/90. - Seek immediate medical attention for chest pain, palpitations, SOB, syncope, or sudden changes in mental status. - Do not change or discontinue current prescriptions without first consulting health care provider Assessment & Plan (03/12/2023 4:37 PM EDT): I advise low Na diet and weigh reduction I discontinue lisinopril and started him on losartan 50mg daily, I advise to monitor his BP at home if >140/90mmhg to reports back Assessment & Plan (12/18/2022 1:18 PM EDT): Maintenance: BMP: ordered today Lipid Panel: ordered today ASCVD Risk: Calculate pending updated labs - Aerobic exercise to reduce BP. Initial goal of 30 min walk 3-5x/week. Increase as tolerated. - low-sodium diet (goal: <2g/day) and heart healthy diet such as DASH to reduce BP and prevent ASCVD. - Home BP monitoring 1-2 x day with goal of <140/90. - Seek immediate medical attention for chest pain, palpitations, SOB, syncope, or sudden changes in mental status. - Do not change or discontinue current prescriptions without first consulting health care provider Urgency of urination 12/28/2011 Overweight 12/28/2011 Allergic rhinitis 12/28/2011 Acute upper respiratory infection 12/28/2011 Encounters Date Type Department Care Team Description 12/02/2024 2:30 PM EDT Office Visit [facility] [address] [place] [id number] Yaritza Banegas MD Essential hypertension (Primary Dx); Schizophrenia, unspecified type ([facility]); Gastroesophageal reflux disease, unspecified whether esophagitis present 12/02/2024 Travel 11/27/2024 Refill [facility] [address] [place] [address] Yaritza Banegas MD Gastroesophageal reflux disease, unspecified whether esophagitis present 11/21/2024 Patient Outreach [facility] [address] [place] [address] Yaritza Banegas MD Pre-visit Planning (SDOH screening negative and tobacco screening negative) from Last 3 Months Immunizations Immunization Administration Dates Next Due Hep B, adult 01/07/2007,08/30/2006,01/02/2006 Influenza injectable quadriv alent preservative free 10/08/2014 TD (adult), 2 Lf tetanus tox oid, preservative free, adsorbed 10/17/2005 Td (adult), 5 Lf tetanus tox oid, preservative free, adsorbed 05/18/2016 Tdap 01/22/2012 Family History Medical History Relation Name Comments Coronary artery disease Father Stroke Maternal Grandfather Diabetes Mother's Brother Relation Name Status Comments Father Maternal Grandfather Mother's Brother Social History Tobacco Use Types Packs/Day Years Used Date Smoking Tobacco: Never Passive Smoke Exposure: Never Smokeless Tobacco: Never Tobacco Cessation:Counseling Given: Not Answered Alcohol Use Standard Drinks/Week Comments Never 0 (1 standard drink = 0.6 oz pur e alcohol) Depression Answer Date Recorded Patient Health Questionnaire-9 Score 8 12/02/2024 Patient Health Questionnaire-9 Score 8 12/02/2024 Last PHQ-9: Questionnaire Data Not on file 0 12/02/2024 Housing Stability Answer Date Recorded What is your housing situation today? I have sonal michele 11/21/[address] you li ve. Do you have problems with any of the following? None of the above 11/21/2024 Food Insecurity Answer Date Recorded Within the past 12 months, y ou worried that your food would run out before you got money to buy more: Never True 11/21/2024 Within the past 12 months,th e food you bought just didn't last and you didn't have enough money to get more: Never True Transportation Answer Date Recorded In the past 12 months, has l ack of transportation kept you from medical appts, meetings, work or from getting things needed for daily living? No 11/21/2024 Utilities Answer Date Recorded In the past 12 months, has t he electric, gas, oil or water company threatened to shut off services in your home? No 11/21/2024 Depression Answer Date Recorded Patient Health Questionnaire-2 Score 2 12/02/2024 Internet Access Answer Date Recorded Internet Access Q1 Yes 11/21/2024 Internet Access Q2 Not on file 11/21/2024 Sex and Gender Information Value Date Recorded Sex Assigned at Male 06/05/2022 10:18 AM EDT Legal Sex Male 10:18 AM EDT Gender Identity Choose not to disclose 10:18 AM EDT Sexual Orientation Choose not to disclose 2021 10:18 AM EDT Last Filed Vital Signs Vital Sign Reading Time Taken Comments Blood Pressure 131/87 12/02/2024 1:33 PM EDT Pulse 85 12/02/2024 1:33 PM EDT Temperature 36.1 ??C (97 ??F) 12/02/2024 1:33 PM EDT Respiratory Rate 20 12/02/2024 1:33 PM EDT Oxygen Saturation 97% 12/02/2024 1:33 PM EDT Inhaled Oxygen Concentration - - Weight 96.6 kg (213 lb) 12/02/2024 1:33 PM EDT Height 167.6 cm (5' 6 ) 12/02/2024 1:33 PM EDT Body Mass Index 34.38 12/02/2024 1:33 PM EDT Plan of Treatment Upcoming Encounters Date Type Department Care Team (Late st Contact Info) Description 03/27/2025 2:00 PM EDT Office Visit [facility] [address] [place], [place] [phone] Keagan, Fanny, OD [address] [place] [address] Health Maintenance Due Date Last Done Comments Disability Screening 1981 Family Planning (PISQ) 1996 Hepatitis C Screening 10/23/1999 COVID-19 Vaccine (3 - 2023-2 5 season) 2024 10/10/2021, 09/19/2021 Influenza Vaccine (#1) 2024 10/08/2014 SDOH Screening 11/21/2025 11/21/2024 Alcohol/Substance Use Screening 12/02/2025 12/02/2024 Depression Screening 12/02/2025 12/02/2024, 12/02/2024 Tobacco Screening 12/02/2025 12/02/2024 DTaP/Tdap/Td Vaccines (3 - T d or Tdap) 05/18/2026 05/18/2016, 01/22/2012, 10/17/2005 Lipid Panel 12/16/2027 12/15/2022, 09/15/2021, 12/22/2020 Zoster Vaccines (1 of 2) 10/23/2031 RSV Patients and Patients Aged 60 years or older (1 - 1-dose 75+ series) 2056 Hepatitis B Vaccines Completed 01/07/2007, 08/30/2006, 01/02/2006 HIV Screening Completed 10/01/2019 HIB Vaccines Aged Out No longer eligi ble based on patient's age to complete this topic HPV Vaccines Aged Out No longer eligi ble based on patient's age to complete this topic Hepatitis A Vaccines Aged Out No long er eligible based on patient's age to complete this topic IPV Vaccines Aged Out No longer eligi ble based on patient's age to complete this topic Meningococcal B Vaccine Aged Out No l onger eligible based on patient's age to complete this topic Meningococcal Vaccine Aged Out No evans afshan eligible based on patient's age to complete this topic Pneumococcal Vaccine: Pediatrics (0 to 5 Years) and At-Risk Patients (6 to 49) Years) Aged Out No longer eligible b ased on patient's age to complete this topic RSV under 20 months Aged Out No longe r eligible based on patient's age to complete this topic Rotavirus Vaccines Aged Out No longer eligible based on patient's age to complete this topic Procedures Procedure Name Priority Date/Time Associated Diagnosis Comments LIPID PANEL, STANDARD Routine 12/15/2022 11:02 AM EDT Essential hypertension [facility] HISTORICAL HIV AB/AG Routine 10/01/2019 1:15 PM EST from Last 3 Months or Most Recently Relevant to Health Maintenance Results * (ABNORMAL) Lipid Panel, Standard (12/15/2022 11:02 AM EDT) Cholesterol, Total 174 <200 mg/dL [facility] HDL Cholesterol 40 > OR = 40 mg/dL [facility] Triglycerides 138 <150 mg/dL [facility] LDL Cholesterol 108(H) mg/dL (calc) [facility] Comment: Reference range: <100 Desirable range <100 mg/dL for primary prevention; ?? <70 mg/dL for patients with CHD or diabetic patients with > or = 2 CHD risk factors. LDL-C is now calculated using the Ginger calculation, which is a validated novel method providing better accuracy than the Friedewald equation in the estimation of LDL-C. Chema ISABEL et al. SANDHYA. 2013;310(19): 5409-6303 (http://education.foodjunky.Idea2/faq/JEX474) Chol/HDLC Ratio 4.4 <5.0 (calc) [facility] Non-HDL Cholesterol 134(H) <130 mg/dL (calc) [facility] Comment: For patients with diabetes plus 1 major ASCVD risk factor, treating to a non-HDL-C goal of <100 mg/dL (LDL-C of <70 mg/dL) is considered a therapeutic option. Blood Venous blood specimen / Unknown 12/15/2022 11:02 AM EDT 12/15/2022 11:03 AM EDT Narrative [facility] - 12/16/2022 1:37 AM EDT FASTING:YES FASTING: YES us Yaritza Espitia MD LAB BLOOD ORDERABLES Final Result Performing Organization Address [facility]/ZIP Co de Phone Number [address], [facility] [place] [address] [facility] [address] [place] [phone] * HIV AB/AG (10/01/2019 1:15 PM EST) [facility] HIV AG/AB NONREACTIVE [facility] Comment: HIV-1 p24 Ag and/or HIV-1/HIV-2 Ab not detected. ?? A test result that is nonreactive does not exclude the possibility of exposure to or infection with HIV-1 and/or HIV-2. Nonreactive results in this assay for individuals with prior exposure to HIV-1 and/or HIV-2 may be due to antigen and antibody levels that are below the limit of detection of this assay. ?? The [facility] HIV Ag/Ab Combo assay result and supplemental assay results should be interpreted in conjunction with the patient's clinical presentation, history and other laboratory results. ??If the results are inconsistent with clinical evidence, additional testing is suggested to confirm the result. 10/01/2019 1:15 PM EST us Mary Huynh NP HISTORICAL/NON ORDERABLE LABS Fi nal Result [facility] [address]where [address] from Last 3 Months or Most Recently Relevant to Health Maintenance Insurance [facility] < [address] [id number] Care Teams Montessori Lead Teacher Relationship Specialty Start Date End Date Yaritza Banegas MD [address] [place] [id number] PCP - General Internal Medicine 10/05/22
--- OUTSIDE RECORDS SUMMARY | 2024-12-25 10:57 | XMS_ITS | Encounter Summary ---
Author Organization [employer] Address [address] [facility] [address] [place] [address] Care Team Providers Care Speech Pathology Supervisor Name Role Phone Yaritza Banegas MD Primary Care Provide r Reason for Visit * Reason Comments Med Refill Encounter Details Date Type Department Care Team ([facility] st Contact Info) Description 08/18/2024 Refill [facility] [address] [place], [place] [phone] Yaritza Banegas MD [address] [place], [place] [phone] Gastroesophageal reflux disease, unspecified whether esophagitis present Social History Tobacco Use Types Packs/Day Years Used Date Smoking Tobacco: Never Passive Smoke Exposure: Never Smokeless Tobacco: Never Alcohol Use Standard Drinks/Week Comments Never 0 (1 standard drink = 0.6 oz pur e alcohol) Depression Answer Date Recorded Patient Health Questionnaire-9 Score 0 01/28/2024 Patient Health Questionnaire-9 Score 0 01/28/2024 Last PHQ-9: Questionnaire Data Not on file 0 01/28/2024 Housing Stability Answer Date Recorded What is your housing situation today? I have sonal michele 05/21/[address] you li ve. Do you have problems with any of the following? None of the above 05/21/2023 Food Insecurity Answer Date Recorded Within the past 12 months, y ou worried that your food would run out before you got money to buy more: Never True 05/21/2023 Within the past 12 months,th e food you bought just didn't last and you didn't have enough money to get more: Never True Transportation Answer Date Recorded In the past 12 months, has l ack of transportation kept you from medical appts, meetings, work or from getting things needed for daily living? No 05/21/2023 Utilities Answer Date Recorded In the past 12 months, has t he electric, gas, oil or water company threatened to shut off services in your home? No 05/21/2023 Depression Answer Date Recorded Patient Health Questionnaire-2 Score 0 01/28/2024 Sex and Gender Information Value Date Recorded Sex Assigned at Male 06/05/2022 10:18 AM EDT Legal Sex Male 10:18 AM EDT Gender Identity Choose not to disclose 10:18 AM EDT Sexual Orientation Choose not to disclose 2021 10:18 AM EDT documented as of this encounter Plan of Treatment Upcoming Encounters Date Type Department Care Team (Late st Contact Info) Description 03/27/2025 2:00 PM EDT Office Visit [facility] [address] [place] [address] Fanny Boogie, OD [address] [place] [address] documented as of this encounter Visit Diagnoses Diagnosis Gastroesophageal reflux disease, unspecified whether esophagitis present documented in this encounter Additional Health Concerns Assessment Noted Time PHQ-9 Depression Total Score: 0 01/28/20 24 2:06 PM EDT documented as of this encounter Care Teams Speech Pathology Supervisor Relationship Specialty Start Date End Date Yaritza Banegas MD [address] [place] [address] PCP - General Internal Medicine 10/05/22 documented as of this encounter
[2024-12-25 11:07] LABS: MANUAL DIFF FLAG NO
[2024-12-25 11:17] LABS: Basophils Absolute Auto 0.1 X10*3/uL (0.0-0.2); Basophils Percent Auto 1.3 % (0-2); Eosinophils Absolute Auto 0.1 X10*3/uL (0.0-0.4); Eosinophils Percent Auto 2.1 % (0-4); Hematocrit 48.2 % (42.0-52.0); Hemoglobin 16.6 g/dl (14.0-18.0); Imm Gran Abs Auto 0.01 X10*3/uL (0.00-0.03); Imm Gran Pct Auto 0.2 % (0.0-0.4); Lymphocytes Absolute Auto 1.7 X10*3/uL (1.2-4.9); Lymphocytes Percent Auto 29.6 % (20-40); Mean Corpuscular HGB Conc 34.4 g/dl (31.0-36.0); Mean Corpuscular Hemoglobin 29.3 pg (27.0-33.0); Mean Corpuscular Volume 85.2 fL (80.0-98.0); Mean Platelet Volume 11.5 fL (9.4-12.4); Monocytes Absolute Auto 0.5 X10*3/uL (0.1-1.2); Monocytes Percent Auto 8.8 % (2-11); Neutrophils Absolute Auto 3.3 x10*3/uL (2.0-8.3); Platelet Count 211 X10*3/uL (160-400); Red Blood Count 5.66 X10*6/uL (4.60-5.80); Red Cell Distribution Width 12.5 % (11.0-16.0); White Blood Count 5.6 X10*3/uL (4.8-10.8)
[2024-12-25 11:45] LABS: Estimated Average Glucose 108 mg/dL; Hemoglobin A1C 148.2908 umol/L; Hemoglobin A1c % 5.4 % (<6.0); Total Hemoglobin (HGBA1C) 4230.1612 umol/L
[2024-12-25 13:08] LABS: Alanine Aminotransferase 42 U/L (0-40); Albumin Level 4.8 g/dL (3.5-5.0); Alkaline Phosphatase 45 U/L (39-117); Anion Gap 12 (12-20); Aspartate Amino Transferase 30 U/L (5-37); Bilirubin Total 0.7 mg/dL (0.0-1.0); Blood Urea Nitrogen 14 mg/dL (9-16); Calcium 9.4 mg/dL (8.4-10.2); Carbon Dioxide 28 mmol/L (22-29); Chloride 105 mmol/L (96-108); Cholesterol 158 mg/dL (<200); Estimated Glomerular Filt Rate > 60; Glucose Random 88 mg/dL (60-115); HDL Cholesterol 39 mg/dL (>40); LDL Cholesterol Calculated 98 mg/dL (<100); Potassium 3.9 mmol/L (3.3-5.1); Sodium 141 mmol/L (135-145); Total Protein 7.7 g/dL (6.5-8.0); Triglycerides 109 mg/dL (<150); Vitamin D 25-OH Total 45.8 ng/mL (>30)
[2024-12-26 03:50] LABS: HIV AB/AG Nonreactive (Nonreactive); HIV Num 1 0.07 S/CO (0.00-0.99); ~HepC Num1 0.33 S/CO (0.00-0.79); ~Hepatitis C Antibody Nonreactive (Nonreactive)
== END 2024-12-25 10:26 | disposition home or self-care (01) ==
LOC: HO.HHCL 10:25
PROVIDERS: Visit Provider Internal Medicine
DX: I10 Essential (primary) hypertension (principal); F20.9 Schizophrenia, unspecified; Z13.1 Encounter for screening for diabetes mellitus
CPT/HCPCS: 36415; 80053; 80061; 82306; 83036; 84443; 85025; 86803; 87389